=== PATIENT | female | born 1940 | race Caucasian/White ===

== ENCOUNTER 2024-10-26 07:30 | Inpatient (IN) | payer MEDICARE, SELFPAY ==
[2024-10-26] VITALS (9 sets, daily range): BP systolic 116–169; BP diastolic 59–75; PULSE 64–87; TEMP 36.4–36.9; O2SAT 93–99; BMI 24.6; BMI 24.7
--- OUTSIDE RECORDS SUMMARY | 2024-10-26 07:39 | XMS_ITS | Encounter Summary ---
Author Organization [facility] Sys tem Address [facility] [id number] [address] [place] [address] Care Team Providers Care Senior Procurement Specialist Name Role Phone Salazar Jacob TECHNICAL COMMUNICATOR-AUTOMOTIVE PRODUCT SPECIALIST Primary Care Provider + Reason for Visit * Reason Onset Date Comments Med Refill 10/23/2016 Encounter Details Date Type Department Care Team (Late st Contact Info) Description 10/23/2016 Refill [facility] [address] [place] [address] [place] [phone] Maria Dolores Akbar RMA Essential hypertension (Primary Dx) Social History Tobacco Use Types Packs/Day Years Used Date Smoking Tobacco: Never Alcohol Use Standard Drinks/Week Comments No 0 (1 standard drink = 0.6 oz pur e alcohol) Comments Unknown Sex and Gender Information Value Date Recorded Sex Assigned at Not on file Legal Sex Female 11:39 AM EDT Gender Identity Not on file Sexual Orientation Not on file documented as of this encounter Miscellaneous Notes * Telephone Encounter - RENY Robb - 10/23/2016 10:02 AM EDT Patient needs a refill on her omeprazole 20mg also RENY Robb 10/23/16 1003 documented in this encounter Plan of Treatment Not on file documented as of this encounter Visit Diagnoses Diagnosis Essential hypertension- Primary Unspecified essential hypertension documented in this encounter Additional Health Concerns Assessment Noted Time PHQ-9 Depression Total Score: 0 07/19/19 17 2:00 PM EDT documented as of this encounter Care Teams Senior Procurement Specialist Relationship Specialty Start Date End Date Salazar Jacob, TECHNICAL COMMUNICATOR-AUTOMOTIVE PRODUCT SPECIALIST [address] [place] [address] PCP - General Internal Medicine 10/13/24 10/19/24 documented as of this encounter
--- OUTSIDE RECORDS SUMMARY | 2024-10-26 07:39 | XMS_ITS | Encounter Summary ---
Author Organization [facility] Sys tem Address [id number] [address] [place] [address] Care Team Providers Care Dry Kiln Operator Name Role Phone Salazar Jacob PATIENT SERVICE TECHNICIAN PST-CAREERS ADVISER Primary Care Provider + Encounter Details Date Type Department Care Team (Late st Contact Info) Description 09/22/2024 Orders Only [facility] - Family Medicine [address] [place] [phone] Kash Tomas, [address] [place] [address] Social History Tobacco Use Types Packs/Day Years Used Date Smoking Tobacco: Never Smokeless Tobacco: Never Alcohol Use Standard Drinks/Week Comments No 0 (1 standard drink = 0.6 oz pur e alcohol) PHQ-2 Answer Date Recorded Total Score 0 08/05/2024 Childcare Answer Date Recorded Childcare Unknown 08/21/2018 Employment Answer Date Recorded Employment Unknown 08/21/2018 Hunger Screening Answer Date Recorded Within the past 12 months we worried whether our food would run out before we got money to buy more. Never True 08/05/2024 Within the past 12 months th e food we bought just didn't last and we didn't have money to get more. Never True 08/05/2024 Purpose - Life Answer Date Recorded Purpose and direction in life Unknown Comments No Sex and Gender Information Value Date Recorded Sex Assigned at Not on file Legal Sex Female 11:39 AM EDT Gender Identity Not on file Sexual Orientation Not on file documented as of this encounter Plan of Treatment Not on file documented as of this encounter Visit Diagnoses Not on filedocumented in this encounter Additional Health Concerns Assessment Noted Time PHQ-9 Depression Total Score: 0 08/06/19 1:38 PM EDT A Body Mass Index follow-up plan has been documented for the patient 08/05/2024 3:04 PM EDT documented as of this encounter Care Teams Dry Kiln Operator Relationship Specialty Start Date End Date Salazar Jacob, PATIENT SERVICE TECHNICIAN PST-CAREERS ADVISER [address] [place] [address] PCP - General Internal Medicine 10/13/24 10/19/24 documented as of this encounter
--- OUTSIDE RECORDS SUMMARY | 2024-10-26 07:39 | XMS_ITS | Encounter Summary ---
Author Organization [facility] Sys tem Address [facility] [place]-[id number] [address] 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; Arthritis, multiple joint involvement Social History Tobacco Use Types Packs/Day Years Used Date Smoking Tobacco: Never Smokeless Tobacco: Never Alcohol Use Standard Drinks/Week Comments No 0 (1 standard drink = 0.6 oz pur e alcohol) PHQ-2 Answer Date Recorded PHQ-2 Score 0 02/28/2018 Childcare Answer Date Recorded Childcare Unknown 08/21/2018 Employment Answer Date Recorded Employment Unknown 08/21/2018 Comments No Sex and Gender Information Value Date Recorded Sex Assigned at Not on file Legal Sex Female 11:39 AM EDT Gender Identity Not on file Sexual Orientation Not on file documented as of this encounter Miscellaneous Notes * Telephone Encounter - Demi Mcrae MA - 11/07/2018 1:29 PM EDT Pt called and would like [place] refilled, told will call her once it is ready for cotton picking machine operator-she has 3 pills left Demi Mcrae MA 11/07/18 1330 * Telephone Encounter - Demi Mcrae MA - 11/07/2018 1:29 PM EDT Pt called and informed to be picked up documented in this encounter Plan of Treatment Not on file documented as of this encounter Visit Diagnoses Diagnosis Chronic pain of right hip 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
--- OUTSIDE RECORDS SUMMARY | 2024-10-26 07:39 | XMS_ITS | Clinical Summary ---
Author Organization [facility] Address [address] [place] [address] Phone Care Team Providers Care Design Leader Name Role Phone Unavailable Primary Care Provider Unavailabl e Social History Tobacco Use Types Packs/Day Years Used Date Smoking Tobacco: Never Assessed Comments Unknown Sex and Gender Information Value Date Recorded Sex Assigned at Not on file Legal Sex Female 1:44 AM EST Gender Identity Not on file Sexual Orientation Not on file Plan of Treatment Not on file
--- OUTSIDE RECORDS SUMMARY | 2024-10-26 07:39 | XMS_ITS | Encounter Summary ---
Author Organization [facility] Address [id number] [address] [place] [address] Care Team Providers Care Ironing Worker Name Role Phone Salazar Jacob ESCALATOR INSTALLER-PULLMAN CAR REPAIRER Primary Care Provider + Reason for Visit * Reason Onset Date Comments Med Refill 02/20/2019 Encounter Details Date Type Department Care Team (Late st Contact Info) Description 02/20/2019 Refill [facility] [address] [place] [address] [address] Demi Mcrae MA Chronic pain of right hip; Arthritis, multiple joint involvement Social History Tobacco [...] Telephone Encounter - Demi Mcrae MA - 02/20/2019 12:32 PM EST Would like refill, informed it won't be until Sunday when I get back with an answer from Jeniffer since she if off on vacation today Demi Mcrae MA 02/20/19 1233 documented in this encounter Plan of Treatment Not on file documented as of this encounter Visit Diagnoses Diagnosis Chronic pain of right hip Arthritis, multiple joint involvement Unspecified arthropathy, multiple sites documented in this encounter Additional Health Concerns Assessment Noted Time PHQ-9 Depression Total Score: 0 12/31/19 19 1:57 PM EDT documented as of this encounter Care Teams Ironing Worker Relationship Specialty Start Date End Date Salazar Jacob, PRASHANTH-PULLMAN CAR REPAIRER [address] [place] [address] PCP - General Internal Medicine 10/13/24 10/19/24 documented as of this encounter
--- OUTSIDE RECORDS SUMMARY | 2024-10-26 07:39 | XMS_ITS | Encounter Summary ---
Author Organization [facility] Sys tem Address [facility] [id number] [address] [place] [address] Care Team Providers Care Retirement Village Manager Name Role Phone Salazar Jacob STORAGE MANAGEMENT ARCHITECT-TURNSTILE COLLECTOR Primary Care Provider + Reason for Visit * Reason Onset Date Comments Med Refill 05/24/2020 Encounter Details Date Type Department Care Team (Late st Contact Info) Description 05/24/2020 Refill [facility] [address] [facility] [place] [address] Demi Mcrae MA Chronic pain of right hip; Arthritis, multiple joint involvement; Right rotator cuff tear arthropathy Social History Tobacco Use Types Packs/Day Years Used Date Smoking Tobacco: Never Smokeless Tobacco: Never Alcohol Use Standard Drinks/Week Comments No 0 (1 standard drink = 0.6 oz pur e alcohol) PHQ-2 Answer Date Recorded PHQ-2 Score 0 02/28/2018 Childcare Answer Date Recorded Childcare Unknown 08/21/2018 Employment Answer Date Recorded Employment Unknown 08/21/2018 Purpose - Life Answer Date Recorded Purpose and direction in life Unknown Comments No Sex and Gender Information Value Date Recorded Sex Assigned at Not on file Legal Sex Female 11:39 AM EDT Gender Identity Not on file Sexual Orientation Not on file documented as of this encounter Miscellaneous Notes * Telephone Encounter - Demi Mcrae MA - 05/24/2020 2:31 PM EDT Pt called and has 4 pills left on norco, needs refill Demi Mcrae MA 05/24/20 1432 documented in this encounter Plan of Treatment Not on file documented as of this encounter Visit Diagnoses Diagnosis Chronic pain of right hip Arthritis, multiple joint involvement Unspecified arthropathy, multiple sites Right rotator cuff tear arthropathy documented in this encounter Additional Health Concerns Assessment Noted Time PHQ-9 Depression Total Score: 0 03/16/19 1:59 PM EST A Body Mass Index follow-up plan has been documented for the patient 03/16/2020 8:22 PM EST documented as of this encounter Care Teams Retirement Village Manager Relationship Specialty Start Date End Date Salazar Jacob, STORAGE MANAGEMENT ARCHITECT-TURNSTILE COLLECTOR [address] [place] [address] PCP - General Internal Medicine 10/13/24 10/19/24 documented as of this encounter
--- OUTSIDE RECORDS SUMMARY | 2024-10-26 07:39 | XMS_ITS | Encounter Summary ---
Author Organization [facility] Address [id number] [address] [place] [address] Care Team Providers Care Klystrom Tube Tester Name Role Phone Salazar Jacob STOCK PREPARER-HAND FILER BALANCE WHEEL Primary Care Provider + Reason for Visit * Reason Onset Date Comments Med Refill 09/11/2018 Encounter Details Date Type Department Care Team (Late st Contact Info) Description 09/11/2018 Refill [facility] [address] [address] [place] [address] Demi Mcrae MA Chronic pain of right [...] Telephone Encounter - Demi Mcrae MA - 09/11/2018 11:07 AM EDT Pt would like a refill on [place], would like to get before weekend Demi Mcrae MA 09/11/18 1108 * Telephone Encounter - Demi Mcrae MA - 09/11/2018 11:07 AM EDT PT INFORMED READY TO BIT SHARPENER OPERATOR documented in this encounter Plan of Treatment Not on file documented as of this encounter Visit Diagnoses Diagnosis Chronic pain of right hip 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
--- OUTSIDE RECORDS SUMMARY | 2024-10-26 07:39 | XMS_ITS | Encounter Summary ---
Author Organization [facility] tem Address [id number] [address] [place] [address] Care Team Providers Care Physician Relations Specialist Name Role Phone Salazar Jacob CUSTODY OFFICER-CPHT Primary Care Provider + Encounter Details Date Type Department Care Team (Late st Contact Info) Description 02/09/2020 Orders Only [facility] [address] [place] [address] [place] [address] Demi Mcrae MA Acute pain of right shoulder due to trauma Social History Tobacco Use Types Packs/Day Years [...] on file Sexual Orientation Not on file COVID-19 Exposure Response Date Recorded In the last month, have you been in contact with someone who was confirmed or suspected to have Coronavirus / COVID-19? No / Unsure 01/29/2020 9:23 AM EST documented as of this encounter Plan of Treatment Pending Results Name Type Priority Associated Diagnoses Date /Time CT shoulder right without contrast Imaging Routine Acute pain of right shoulder due to trauma 02/09/2020 12:42 PM EST documented as of this encounter Visit Diagnoses Diagnosis Acute pain of right shoulder due to trauma documented in this encounter Additional Health Concerns Assessment Noted Time PHQ-9 Depression Total Score: 0 01/29/20 9:46 AM EST A Body Mass Index follow-up plan has been documented for the patient 02/02/2020 7:37 AM EST documented as of this encounter Care Teams Physician Relations Specialist Relationship Specialty Start Date End Date Salazar Jacob, CUSTODY OFFICER-CPHT [address] [place] [address] PCP - General Internal Medicine 10/13/24 10/19/24 documented as of this encounter
--- OUTSIDE RECORDS SUMMARY | 2024-10-26 07:39 | XMS_ITS | Encounter Summary ---
Author Organization [facility] Sys tem Address [facility] [id number] [address] [place] [address] Care Team Providers Care Community Health Specialist Name Role Phone Salazar Jacob EVENT LIGHTING SPECIALIST-BOX STACKER Primary Care Provider + Encounter Details Date Type Department Care Team (Late st Contact Info) Description 04/19/2023 Orders Only [facility] - Family Medicine [address] [place] [phone] Sarthak Grace, DO [address] [facility] [place] [address] Social History Tobacco Use Types Packs/Day Years Used Date Smoking Tobacco: Never Smokeless Tobacco: Never Alcohol Use Standard Drinks/Week Comments No 0 (1 standard drink = 0.6 oz pur e alcohol) PHQ-2 Answer Date Recorded Total Score 0 01/30/2023 Childcare Answer Date Recorded Childcare Unknown 08/21/2018 Employment Answer Date Recorded Employment Unknown 08/21/2018 Hunger Screening Answer Date Recorded Within the past 12 months we worried whether our food would run out before we got money to buy more. Never True 01/30/2023 Within the past 12 months th e food we bought just didn't last and we didn't have money to get more. Never True 01/30/2023 Purpose - Life Answer Date Recorded Purpose [...] Noted Time PHQ-9 Depression Total Score: 0 01/31/20 23 10:58 AM EST A Body Mass Index follow-up plan has been documented for the patient 01/30/2023 11:42 AM EST documented as of this encounter Care Teams Community Health Specialist Relationship Specialty Start Date End Date Salazar Jacob, EVENT LIGHTING SPECIALIST-BOX STACKER [address] [place] [address] PCP - General Internal Medicine 10/13/24 10/19/24 documented as of this encounter
--- OUTSIDE RECORDS SUMMARY | 2024-10-26 07:39 | XMS_ITS | Encounter Summary ---
Author Organization [facility] tem Address [facility] [id number]-[id number] [address] [place] [address] Care Team Providers Care Etl Informatica Architect Name Role Phone Salazar Jacob FOAM RUBBER MIXER-CRIMINAL RECORDS TECHNICIAN Primary Care Provider + Encounter Details Date Type Department Care Team (Late st Contact Info) Description 06/27/2023 Telephone [facility] - [facility] Medicine [address] [place] [phone] Lurdes Walters CMA Social History Tobacco Use Types Packs/Day Years Used Date Smoking Tobacco: Never Smokeless Tobacco: Never Alcohol Use Standard Drinks/Week Comments No 0 (1 standard drink = 0.6 oz pur e alcohol) PHQ-2 Answer Date Recorded Total Score 0 05/01/2023 Childcare Answer Date Recorded Childcare Unknown 08/21/2018 Employment Answer Date Recorded Employment Unknown 08/21/2018 Hunger Screening Answer Date Recorded Within the past 12 months we worried whether our food would run out before we got money to buy more. Never True 05/01/2023 Within the past 12 months th e food we bought just didn't last and we didn't have money to get more. Never True 05/01/2023 Purpose - Life Answer Date Recorded Purpose and direction in life Unknown Comments No Sex and Gender Information Value Date Recorded Sex Assigned at Not on file Legal Sex Female 11:39 AM EDT Gender Identity Not on file Sexual Orientation Not on file documented as of this encounter Miscellaneous Notes * Telephone Encounter - Lurdes Walters CMA - 06/27/2023 11:52 AM EDT [facility] pt's RX you sent today , is it 30 day suppy with a quantity of 60 or make quantity last 30 days? * Telephone Encounter - SAMUEL Delgado - 06/27/2023 11:52 AM EDT I called and spoke with the pharmacist, the order is fine. * Telephone Encounter - Lurdes Walters CMA - 06/27/2023 11:52 AM EDT Ok thank you documented in this encounter Plan of Treatment Not on file documented as of this encounter Visit Diagnoses Not on filedocumented in this encounter Additional Health Concerns Assessment Noted Time PHQ-9 Depression Total Score: 0 05/01/19 24 1:07 PM EST A Body Mass Index follow-up plan has been documented for the patient 01/30/2023 11:42 AM EST documented as of this encounter Care Teams Etl Informatica Architect Relationship Specialty Start Date End Date Salazar Jacob APRN-CNP [address] [place] [address] PCP - General Internal Medicine 10/13/24 10/19/24 documented as of this encounter
--- OUTSIDE RECORDS SUMMARY | 2024-10-26 07:39 | XMS_ITS | Encounter Summary ---
Author Organization [facility] Sys tem Address [facility] [place]-[id number] [address] [place] [address] Care Team Providers Care Examination Scorer Name Role Phone Salazar Jacob LEGAL AID-RELOCATION COUNSELOR Primary Care Provider + Reason for Visit * Reason Onset Date Comments Med Refill 06/09/2024 Encounter Details Date Type Department Care Team (Late st Contact Info) Description 06/09/2024 Refill [facility] - Family Medicine [address] [place] [phone] Romeo, Lurdes, RN CIRCULATING Arthritis, multiple joint involvement; Chronic pain of right hip; Right rotator cuff tear arthropathy Social History Tobacco Use Types Packs/Day Years Used Date Smoking Tobacco: Never Smokeless Tobacco: Never Alcohol Use Standard Drinks/Week Comments No 0 (1 standard drink = 0.6 oz pur e alcohol) PHQ-2 Answer Date Recorded Total Score 0 05/06/2024 Childcare Answer Date Recorded Childcare Unknown 08/21/2018 Employment Answer Date Recorded Employment Unknown 08/21/2018 Hunger Screening Answer Date Recorded Within the past 12 months we worried whether our food would run out before we got money to buy more. Never True 05/06/2024 Within the past 12 months th e food we bought just didn't last and we didn't have money to get more. Never True 05/06/2024 Purpose - Life Answer Date Recorded Purpose and direction in life Unknown Comments No Sex and Gender Information Value Date Recorded Sex Assigned at Not on file Legal Sex Female 11:39 AM EDT Gender Identity Not on file Sexual Orientation Not on file documented as of this encounter Plan of Treatment Not on file documented as of this encounter Visit Diagnoses Diagnosis Arthritis, multiple joint involvement Unspecified arthropathy, multiple sites Chronic pain of right hip Right rotator cuff tear arthropathy documented in this encounter Additional Health Concerns Assessment Noted Time PHQ-9 Depression Total Score: 0 05/06/19 1:38 PM EST A Body Mass Index follow-up plan has been documented for the patient 05/06/2024 2:08 PM EST documented as of this encounter Care Teams Examination Scorer Relationship Specialty Start Date End Date Salazar Jacob, LEGAL AID-RELOCATION COUNSELOR [address] [place] [address] PCP - General Internal Medicine 10/13/24 10/19/24 documented as of this encounter
--- OUTSIDE RECORDS SUMMARY | 2024-10-26 07:39 | XMS_ITS | Encounter Summary ---
Author Organization [facility] tem Address [facility]-[id number] [address] [place] [address] Care Team Providers Care Beef Selector Name Role Phone Salazar Jacob SUPERVISOR AIRCRAFT MAINTENANCE-DIRECT RESPONSE CONSULTANT Primary Care Provider + Encounter Details Date Type Department Care Team (Late st Contact Info) Description 07/20/2021 [facility]phone [facility] [address] [place] [address] Deisy Calhoun CMA Social History Tobacco Use Types Packs/Day Years Used Date Smoking Tobacco: Never Smokeless Tobacco: Never Alcohol Use Standard Drinks/Week Comments No 0 (1 standard drink = 0.6 oz pur e alcohol) PHQ-2 Answer Date Recorded Total Score 0 04/26/2021 Childcare Answer Date Recorded Childcare Unknown 08/21/2018 [...] Exposure Response Date Recorded In the last 10 days, have yo u been in contact with someone who was confirmed or suspected to have Coronavirus/COVID-19? No / Unsure 07/19/2021 10:01 AM EDT documented as of this encounter Miscellaneous Notes * Telephone Encounter - Deisy Calhoun CMA - 07/20/2021 5:34 PM EDT Pt called and wanted to let you know she got in with Dr Brown on Sunday. She asks if we sent anything over to him, as she is concerned he will not understand what has been going on with her. Is there anything I should send over to office? Not sure as this is an outside referral how this will work. * Telephone Encounter - SAMUEL Delgado - 07/20/2021 5:34 PM EDT Nothing to send at this time. I did not order xrays unless her pain is unchanged. If he needs to speak with me, I always do- as long as the patient consents, and she has. documented in this encounter Plan of Treatment Not on file documented as of this encounter Visit Diagnoses Not on filedocumented in this encounter Additional Health Concerns Assessment Noted Time PHQ-9 Depression Total Score: 0 04/26/19 22 1:49 PM EST A Body Mass Index follow-up plan has been documented for the patient 01/11/2021 12:37 PM EDT documented as of this encounter Care Teams Beef Selector Relationship Specialty Start Date End Date Salazar Jacob APRN-CNP [address] [place] [address] PCP - General Internal Medicine 10/13/24 10/19/24 documented as of this encounter
--- OUTSIDE RECORDS SUMMARY | 2024-10-26 07:39 | XMS_ITS | Clinical Summary ---
Author Organization [facility] Healthcare Address [address] [place] [address] Care Team Providers Care Broodmare Barn Groom Name Role Phone Yaa Peña Unavailable [phone] Allergies Active Allergy Reactions Criticality Noted Date Comments Codeine Diarrhea,Nausea Only ,Unknown,GI intolerance 06/05/2016 Medications amLODIPine (Norvasc) 10 MG tablet Take 10 mg by mouth in the morning. 06/06/2022 Active aspirin 325 MG tablet every 12 (twelve) hours Active HYDROcodone-laxmi taminophen (Ashley) 5-325 MG tablet Take 1 tablet by mouth every 12 (twelve) hours if needed 06/08/2022 Active lisinopril 20 MG tablet Take 20 mg by mouth in the morning. 06/06/2022 Active omeprazole (PriLOSEC) [address] capsule Active prednisoLONE acetate (Pred-Forte) 1 % ophthalmic suspensionIndic ations:Post corneal transplant INSTILL 1 DROP IN THE AFFECTED EYE(S) FOUR TIMES DAILY 15 mL 5 06/12/2024 Active cycloSPORINE (Restasis) 0.05 % ophthalmic emulsion INSTILL 1 DROP INTO EACH EYE EVERY MORNING AND BEFORE BEDTIME 08/05/2024 Active Active Problems Problem Noted Date Diagnosed Date Post corneal transplant 09/19/2022 Keratoconjunctivitis sicca o f both eyes not specified as Sjogren's 09/19/2022 Blepharitis of upper and lower eyelids of both e yes 09/19/2022 Encounters Date Type Department Care Team Description 09/02/2024 2:45 PM EDT Office Visit [facility] [address] [place] [address] Kedar Kemp PA Primary osteoarthritis of right knee (Primary Dx) 09/02/2024 11:30 AM EDT Ancillary Procedure [facility] [address] [place] [id number] 09/02/2024 Travel from Last 3 Months Social History Tobacco Use Types Packs/Day Years Used Date Smoking Tobacco: Never Smokeless Tobacco: Never Tobacco Cessation:Counseling Given: Not Answered Comments Unknown Sex and Gender Information Value Date Recorded Sex Assigned at Not on file Legal Sex Female 8:33 PM EDT Gender Identity Not on file Sexual Orientation Not on file Last Filed Vital Signs Vital Sign Reading Time Taken Comments Blood Pressure 147/70 04/18/2019 12:00 PM EST Pulse - - Temperature 36.3 C (97.4 F) 02/20/2024 12:56 PM EST Respiratory Rate - - Oxygen Saturation - - Inhaled Oxygen Concentration - - Weight 64.9 kg (143 lb) 09/02/2024 2:38 PM EDT Height 157.5 cm (5' 2 ) 09/02/2024 2:38 PM EDT Body Mass Index 26.16 09/02/2024 2:38 PM EDT Plan of Treatment Upcoming Encounters Date Type Department Care Team (Late st Contact Info) Description 10/27/2024 1:00 PM EDT Office Visit [facility] [address] [place] [address] Eloy Sosa DO [address] [place] [address] Health Maintenance Due Date Last Done Comments Pneumococcal Vaccine: 65+ Years (1 of 1 - PCV) 990 Influenza Vaccine (#1) 2024 Procedures Procedure Name Priority Date/Time Associated Diagnosis Comments [place] ARTHROCENTESIS ASPIR&/INJ MAJOR JT/BURSA W/O US Routine 09/02/2024 2:54 PM EDT Primary osteoarthritis of right knee XR KNEE 3 VIEWS RIGHT Routine 09/02/2024 11:25 AM EDT Primary osteoarthritis of right knee from Last 3 Months Results * [place] ARTHROCENTESIS ASPIR&/INJ MAJOR JT/BURSA W/O US (09/02/2024 2:54 PM EDT) Narrative Terencenicolealycia DeviCHANNING - 09/02/2024 2:54 PM EDT Devi CHANNING Hong 09/18/2024 4:25 PM L Inj/Asp: R knee on 09/02/2024 2:54 PM Indications: pain Details: 25 G needle, anterolateral approach Medications: 12 mg betamethasone acetate-betamethasone sodium phosphate 6 (3-3) MG/ML Procedure, treatment alternatives, risks and benefits explained, specific risks discussed. Consent was given by the patient. Immediately prior to procedure a time out was called to verify the correct patient, procedure, equipment, family support coordinator and site/side marked as required. Patient was prepped and draped in the usual sterile fashion. us Kedar BROOKS IN CLINIC/BEDSIDE ORDERABLES Fin al Result * XR knee 3 views right (09/02/2024 11:25 AM EDT) Anatomical Region Laterality Modality Lower Extremities, Knee Right Radiogra [facility] Imaging Narrative 09/18/2024 4:22 PM EDT Imaging Result: Bilateral standing PA, bilateral sunrise, and lateral of the affected knee were imaged today in the office. Patient does have noted right greater than left chondrocalcinosis of the men[place]i and slightly advanced patellofemoral disease on the right but no evidence of acute fracture bony tumor seen us Kedar BROOKS IMG XR PROCEDURES Final Result from Last 3 Months Insurance [facility] MEDICARE Care Teams Broodmare Barn Groom Relationship Specialty Start Date End Date Yaa Peña CRNP Referring Physician Nurse Practitioner 09/18/23
--- OUTSIDE RECORDS SUMMARY | 2024-10-26 07:39 | XMS_ITS | Encounter Summary ---
Author Organization [employer] [facility] Address [id number] [address] 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 Social History Tobacco Use Types Packs/Day Years Used Date Smoking Tobacco: Never Smokeless Tobacco: Never Alcohol Use Standard Drinks/Week Comments No 0 (1 standard drink = 0.6 oz pur e alcohol) PHQ-2 Answer Date Recorded PHQ-2 Score 0 02/28/2018 Comments No Sex and Gender Information Value Date Recorded Sex Assigned at Not on file Legal Sex Female 11:39 AM EDT Gender Identity Not on file Sexual Orientation Not on file documented as of this encounter Miscellaneous Notes * Telephone Encounter - Demi Mcrae MA - 05/20/2018 12:03 PM EDT Would like a refill on pain medication, told will call so she can pick it up Demi Mcrae MA 05/20/18 1203 * Telephone Encounter - Demi Mcrae MA - 05/20/2018 12:03 PM EDT Called pt to let her know rx ready to sweet pickled fruit maker documented in this encounter Plan of Treatment Not on file documented as of this encounter Visit Diagnoses Diagnosis Chronic pain of right hip 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
--- OUTSIDE RECORDS SUMMARY | 2024-10-26 07:39 | XMS_ITS | Clinical Summary ---
Author Organization [employer] tem Address [id number] [address] [place] [address] Care Team Providers Care Tack Puller Name Role Phone Unavailable Primary Care Provider Unavailabl e Allergies Active Allergy Reactions Criticality Noted Date Comments Codeine Diarrhea,Nausea,Vomiting 06/05/2016 Medications aspirin-caffeine 400-32 mg tablet Take by mouth as needed. Active LOTEMAX 0.5 % ophthalmic gel Administer 1 drop to both eyes in the morning and 1 drop before bedtime. 5 9 Active aspirin 81 mgIndications:Ath erosclerosis of cous[place] coronary artery of [place] heart without angina pectoris Take 1 tablet (81 mg total) by mouth daily. 150 tablet 2 1 Active ofloxacin (OCUFLOX) 0.3 % ophthalmic solution 2 Active cycloSPORINE (RESTASIS) 0.05 % ophthalmic emulsion 1 drop in the morning and 1 drop before bedtime. Active melatonin (CIRCADIN) tablet Take 1 tablet (1 mg total) by mouth. 2 Active prednisoLONE acetate (PRED FORTE) 1 % ophthalmic suspension 3 Active loperamide (IMODIUM) 2 mg capsuleIndication s:Loose stools Take 1 capsule (2 mg total) by mouth 4 (four) times a day as needed for diarrhea. 30 capsule 6 3 Active amLODIPine (NORVASC) 10 mg tabletIndications :Essential hypertension Take 1 tablet (10 mg total) by mouth in the morning. 90 tablet 1 5 Active lisinopriL (PRINIVIL,ZESTRIL ) 20 mg tabletIndications :Essential hypertension Take 1 tablet (20 mg total) by mouth in the morning. 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 90 capsule 1 5 Active HYDROcodone-aceta minophen (NORCO) 5-325 mg per tabletIndications :Arthritis, multiple joint involvement,Chron ic pain of right hip,Right rotator cuff tear arthropathy Take 1 tablet by mouth every 12 (twelve) hours as needed for pain. Max Daily Amount: 2 tablets 40 tablet 5 Active Active Problems Problem Noted Date Diagnosed Date Elevated glucose level 12/09/2019 Narcotic drug use 09/16/2019 Abnormal mammogram of right breast 10/03/2018 Stage 3 chronic kidney disease 09/30/2018 Arthritis, multiple joint involvement 07/14/2018 Encounter for screening mamm ogram for malignant neoplasm of breast 06/26/2017 Chronic pain of right hip 06/11/2017 Screening for diabetes mellitus (DM) 02/20/2017 Post-menopausal 02/20/2017 Hyperlipemia 07/18/2016 Atherosclerosis of [place] co ronary artery of [place] heart without angina pectoris 07/18/2016 Myocardial infarct, old 07/18/2016 Allergic rhinitis due to pollen 07/18/2016 Essential hypertension 07/18/2016 Resolved Problems Problem Noted Date Diagnosed Date Resolved Date Gastroenteritis 03/26/2018 12/09/2019 Chronic iliotibial band synd yordan of right side 11/05/2017 12/10/2019 Reflux esophagitis 1 Encounters Date Type Department Care Team Description 09/22/2024 Orders Only [facility] [address] [place] [address] Kash Tomas DO 09/22/2024 Refill [facility] [address] [place] [address] Ksenia Calderon CMA Arthritis, multiple joint involvement; Chronic pain of right hip; Right rotator cuff tear arthropathy 08/05/2024 1:40 PM EDT Office Visit [facility] [address] [place] [address] Yaa Peña, CREATIVE CONSULTANT-GUIDANCE AND CONTROL SYSTEM ENGINEER Chronic pain of right hip (Primary Dx); Arthritis, multiple joint involvement; Right rotator cuff tear arthropathy; Narcotic use agreement exists 08/05/2024 Travel from Last 3 Months Family History Medical History Relation Name Comments Diabetes Father Coronary artery disease Other Hyperlipidemia Other Hypertension Other Stroke Other Breast cancer Paternal Grandmother 80s [place] Breast Cancer Neg Hx Relation Name Status Comments Father Mother Other Paternal Grandmother Social History Tobacco Use Types Packs/Day Years Used Date Smoking Tobacco: Never Smokeless Tobacco: Never Tobacco Cessation:Counseling Given: Not Answered Alcohol Use Standard Drinks/Week Comments No 0 [...] Sign Reading Time Taken Comments Blood Pressure 110/58 08/05/2024 1:38 PM EDT Pulse 64 08/05/2024 1:38 PM EDT Temperature 37.1 C (98.8 F) 08/05/2024 1:38 PM EDT Respiratory Rate 20 08/05/2024 1:38 PM EDT Oxygen Saturation 98% 08/05/2024 1:38 PM EDT Inhaled Oxygen Concentration - - Weight 64.9 kg (143 lb) 08/05/2024 1:38 PM EDT Height 159.7 cm (5' 2.87 ) 08/05/2024 1:38 PM ED T Body Mass Index 25.43 08/05/2024 1:38 PM EDT Plan of Treatment Health Maintenance Due Date Last Done Comments DTaP,Tdap and Td Vaccines (1 - Tdap) 01[birth year]03/1959 Zoster (Shingles) Vaccine (1 of 2) 01/03/1990 COVID-19 Vaccine (8 - 2023-2 5 season) 2024 01/25/2024, 12/15/2022, 12/09/2021, Additional history exists Influenza Vaccine 11/10/2024 Medicare Annual Wellness Visit 02/04/2025 1 04/06/2023, 01/30/2023, 01/17/2022, Additional history exists Depression Screening 08/05/2025 08/05/2024 Fall Risk Screening 08/05/2025 08/05/2024 Tobacco Screening 08/05/2025 08/05/2024 Medical Devices Not on file Procedures Procedure Name Priority Date/Time Associated Diagnosis Comments DRUG SCREEN, URINE Routine 08/05/2024 1: 58 PM EDT Narcotic use agreement exists from Last 3 Months Results * (ABNORMAL) Drug Screen, Urine (08/05/2024 1:58 PM EDT) AMPHETAMINE/METHAM P Negative Negative 08/05/2024 8:58 PM EDT [facility] Comment:AMPH/METH screening cut off = 1000 ng/mL COCAINE METABOLITE Negative Negative 2024 8:58 PM EDT [facility] Comment:Cocaine screening cu t off value = 300 ng/mL ECSTASY Negative Negative 08/05/2024 8:58 PM EDT [facility] Comment:Ecstasy screening cu t off value = 500 ng/mL METHADONE Negative Negative 08/05/2024 8:58 PM EDT [facility] Comment:Methadone screening cut off value = 300 ng/mL. OPIATES Positive(A) Negative 08/05/2024 8:58 PM EDT [facility] Comment: Opiates screening cut off value = 300 ng/mL This test is used for the detection of codeine, hydrocodone (>1000 ng/mL), morphine and hydromorphone (>900 ng/mL) in urine. OXYCODONE Negative Negative 08/05/2024 8:58 PM EDT [facility] Comment: M--DFLAG Oxycodone screening cut off value = 300 ng/mL This test is used for the detection of oxycodone and oxymorphone in urine. PHENCYCLIDINE Negative Negative 08/05/2024 8:58 PM EDT [facility] Comment:Phencyclidine screen ing cut off value = 25 ng/mL CANNABINOIDS Negative Negative 08/05/2024 8:58 PM EDT [facility] Comment:Cannabinoids/THC scr eening cut off value = 50 ng/mL Urine Barbiturates Negative Negative 2024 8:58 PM EDT [facility] Comment:Barbiturates screeni ng cut off value = 200 ng/mL BENZODIAZEPINES Negative Negative 8:58 PM EDT [facility] Comment:Benzodiazepines scre ening cut off value = 200 ng/mL Urine 08/05/2024 1:58 PM EDT 08/05/2024 1:59 PM EDT Narrative [facility] - 08/05/2024 8:58 PM EDT Confirmation available upon request. us Yaa Peña CREATIVE CONSULTANT-GUIDANCE AND CONTROL SYSTEM ENGINEER URINE ORDERABLES Fin al Result [facility] [address] [place] [address], from Last 3 Months Insurance [employer] MEDICARE
--- OUTSIDE RECORDS SUMMARY | 2024-10-26 07:39 | XMS_ITS | Encounter Summary ---
Author Organization [facility] Sys tem Address [id number] [address] [place] [address] Care Team Providers Care Insect Control Aide Name Role Phone Salazar Jacob SUPERVISOR CORDUROY CUTTING-SUPERVISOR CELL ROOM Primary Care Provider + Encounter Details Date Type Department Care Team (Late st Contact Info) Description 08/16/2021 Orders Only [facility] [address] [place] [address] Ref Prov, [place] [address] Social History Tobacco Use Types Packs/Day Years [...] AM EDT documented as of this encounter Plan of Treatment Not on file documented as of this encounter Procedures Procedure Name Priority Date/Time Associated Diagnosis Comments MULTIPLE LABS Routine 08/15/2021 XR CHEST 2 VWS Routine 08/15/2021 documented in this encounter Results * Multiple labs (08/15/2021) us Not In System Ref Prov OR IMAGING Final Res ult MANUALLY TRANSCRIBED RESULTS * X-ray chest 2 views (08/15/2021) Anatomical Region Laterality Modality Body, Chest N/A Computed Radiogr aphy us Not In System Ref Prov IMG DIAGNOSTIC IMAGING OR DERABLES Final Result documented in this encounter Visit Diagnoses Not on filedocumented in this encounter Additional Health Concerns Assessment Noted Time PHQ-9 Depression Total Score: 0 04/26/19 22 1:49 PM EST A Body Mass Index follow-up plan has been documented for the patient 01/11/2021 12:37 PM EDT documented as of this encounter Care Teams Insect Control Aide Relationship Specialty Start Date End Date Salazar Jacob, SUPERVISOR CORDUROY CUTTING-SUPERVISOR CELL ROOM [address] [place] [address] PCP - General Internal Medicine 10/13/24 10/19/24 documented as of this encounter
--- OUTSIDE RECORDS SUMMARY | 2024-10-26 07:39 | XMS_ITS | Encounter Summary ---
Author Organization [facility] Address [id number] [address] [place] [address] Care Team Providers Care Account Services Representative Name Role Phone Salazar Jacob CHIEF SECURITY AND SAFETY OFFICER-PROSTHETIC ASSISTANT Primary Care Provider + Reason for Visit * Reason Onset Date Comments Med Refill 09/14/2022 Encounter Details Date Type Department Care Team (Late st Contact Info) Description 09/14/2022 Refill [facility] [address] [place] [address] Yaa Peña, CHIEF SECURITY AND SAFETY OFFICER-[facility] [address] LEFT PM 09/08/24 [place] [id number] Social History Tobacco Use Types Packs/Day Years Used Date Smoking Tobacco: Never Smokeless Tobacco: Never Alcohol Use Standard Drinks/Week Comments No 0 (1 standard drink = 0.6 oz pur e alcohol) PHQ-2 Answer Date Recorded Total Score 0 01/17/2022 Childcare Answer Date Recorded Childcare Unknown 08/21/2018 [...] Noted Time PHQ-9 Depression Total Score: 0 01/18/20 22 1:20 PM EST A Body Mass Index follow-up plan has been documented for the patient 06/08/2022 1:04 PM EDT documented as of this encounter Care Teams Account Services Representative Relationship Specialty Start Date End Date Salazar Jacob, CHIEF SECURITY AND SAFETY OFFICER-PROSTHETIC ASSISTANT [address] [place] [address] PCP - General Internal Medicine 10/13/24 10/19/24 documented as of this encounter
--- OUTSIDE RECORDS SUMMARY | 2024-10-26 07:39 | XMS_ITS | Encounter Summary ---
Author Organization [facility] Address [id number] [address] [place] [address] Care Team Providers Care Pigment And Lacquer Mixer Name Role Phone Salazar Jacob SLATE TRIMMER-SURGERY AID Primary Care Provider + Encounter Details Date Type Department Care Team (Late st Contact Info) Description 08/17/2020 Refill [facility] [address] [facility] [place] [address] [place] [address] Deisy Calhoun CMA Chronic pain of right hip; Arthritis, multiple joint involvement; Right rotator cuff tear arthropathy Social History Tobacco Use Types Packs/Day Years Used Date Smoking Tobacco: Never Smokeless Tobacco: Never Alcohol Use Standard Drinks/Week Comments No 0 (1 standard drink = 0.6 oz pur e alcohol) PHQ-2 Answer Date Recorded Total Score 0 06/15/2020 Childcare Answer Date Recorded Childcare Unknown 08/21/2018 [...] Telephone Encounter - Deisy Calhoun CMA - 08/17/2020 1:47 PM EDT Pt has about 5 pills left, asked if you can send her in new script to [facility], thank you. * Telephone Encounter - SAMUEL Delgado - 08/17/2020 1:47 PM EDT The OARRS/MAPPS database was reviewed today and found to be appropriate. No indication of medication diversion, or non compliance. ?? Last fill Heath 5/325 tablets #30 was on 05/25/20 ?? Diagnosis:?? 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 Chronic right hip pain. Right rotator tear ?? Reviewed urine drug screen, negative.?? documented in this encounter Plan of Treatment Not on file documented as of this encounter Visit Diagnoses Diagnosis Chronic pain of right hip Arthritis, multiple joint involvement Unspecified arthropathy, multiple sites Right rotator cuff tear arthropathy documented in this encounter Additional Health Concerns Assessment Noted Time PHQ-9 Depression Total Score: 0 06/16/19 1:03 PM EDT A Body Mass Index follow-up plan has been documented for the patient 06/16/2020 6:51 AM EDT documented as of this encounter Care Teams Pigment And Lacquer Mixer Relationship Specialty Start Date End Date Salazar Jacob APRN-CNP [address] [place] [address] PCP - General Internal Medicine 10/13/24 10/19/24 documented as of this encounter
--- NOTE | 2024-10-26 07:51 | CT_ITS ---
The [address] [address] Patient Name: BRIDGET OWENS MRN: [id number] date: 1940 Sex: F Assigned Patient Location: ER Current Patient Location: ER Accession/Order Number: [id number] Exam Date: 10/26/2024 09:24 Report Date: 10/26/2024 09:28 At the request of: DAVIN SONG MD Procedure: CT abdomen pelvis w con CT ABDOMEN AND PELVIS WITH INTRAVENOUS CONTRAST: CLINICAL HISTORY: Rectal bleeding COMPARISON: None TECHNIQUE: Spiral images were obtained through the abdomen and pelvis following the administration of intravenous contrast. This CT exam was performed using one or more following dose reduction techniques: Automated exposure control, adjustment of the mA and/or kV according to patient size, or use of iterative reconstruction technique. FINDINGS: Lung Bases: [Bibasilar scarring.] Organs:Portions of the dome of the liver were excluded from today's study. Visualized liver appears unremarkable. Gallbladder portal vein spleen pancreas and adrenal glands all appear unremarkable. Cystic changes involving the kidneys, which are too small for true characterization. Aorta appears normal in caliber.[ GI: Stomach is nondistended. Small bowel appears nondilated. No abnormal wall thickening and inflammatory changes are seen involving the descending colon suggestive of colitis without obstruction.[ Pelvis:[Suboptimal evaluation due to streak hardware artifact from the patient's right hip prosthesis. There appears to be bilateral adnexal cysts, largest involving the right adnexa measuring 7.7 cm] Peritoneum/Retroperitoneum:No free air or free fluid or lymphadenopathy.[ Abd wall/Bones:Abdominal wall demonstrates no acute findings. Osseous structures demonstrate degenerative change. Scoliosis.[ CT/CT abdomen pelvis w con IMPRESSION: 1. Evidence of colitis involving the descending colon without obstruction. 2. Bilateral adnexal cysts largest measuring 7.7 cm. Further evaluation with nonemergent ultrasound is suggested. Impression dictated by: Parker Leija Jr., D.O. 10/26/2024 9:28 AM Dictation Location: [facility] Electronically authenticated by: [id number] Y Date: 10/26/2024 09:28
--- NOTE | 2024-10-26 07:52 | ED.GENADUL1 ---
HPI HPI - General Adult General Chief complaint: GI Bleed Stated complaint: RECTAL BLEEDING Time Seen by Provider: 10/26/24 07:35 Source: patient Mode of arrival: walk-in History of Present Illness HPI narrative: 84-year-old female presented to the emergency department for chief complaint of rectal bleeding. It began yesterday after eating a meal at a restaurant. She has had several bowel movements with bright red blood. She has some minimal abdominal discomfort but no significant pain. She has not had a colonoscopy in about 30 years. No fever or back pain. This has never happened to her before and she does not take any blood thinners. Related Data Home Medications ?Medication ?Instructions ?Recorded ?Confirmed amlodipine 10 mg tablet 10 mg PO DAILY 10/26/24 10/26/24 hydrocodone 5 mg-acetaminophen 325 1 tab PO Q12H PRN pain 10/26/24 10/26/24 mg tablet lisinopril 20 mg tablet 20 mg PO DAILY 10/26/24 10/26/24 omeprazole 20 mg capsule,delayed 20 mg PO DAILY 10/26/24 10/26/24 release Allergies Allergy/AdvReac Type Severity Reaction Status Date / Time codeine AdvReac Severe Vomiting Verified 10/26/24 07:43 Review of Systems ROS Narrative A ten point review of systems is negative except as noted above. PFSH PFSH Social History Little interest or pleasure in doing things: not at all Feeling down, depressed, or hopeless: not at all Exam Narrative Exam Narrative: Nurses note and vital signs reviewed and patient is not hypoxic. General: The patient appears well and in no apparent distress. Patient is resting comfortably on cart. Skin: Warm, dry, no pallor noted. There is no rash noted. Head: Normocephalic, atraumatic Eye: Normal conjunctiva, no drainage Ears, Nose, Mouth, and Throat: oral mucosa is moist. Nares patent. Cardiovascular: Regular Rate and Rhythm Respiratory: Patient is in no distress, no accessory muscle use, lungs are clear to auscultation, no wheezing, rales or rhonchi Back: non-tender GI: Soft and no apparent tenderness on palpation. No masses. Digital rectal exam shows small amount of bright red blood. Musculoskeletal: The patient has no evidence of calf tenderness, no pitting edema, symmetrical pulses noted bilaterally Neurological: A&O, normal speech Psychiatric: Cooperative Constitutional Vital Signs, click to edit/add: Last Vital Signs Temp 98 F 10/26/24 07:37 Pulse 87 10/26/24 07:37 Resp 18 10/26/24 07:37 BP 143/59 H 10/26/24 08:00 Pulse Ox 99 10/26/24 08:20 O2 Del Method Room Air 10/26/24 07:37 Course Vital Signs Vital signs: Vital Signs Temperature 98 F 10/26/24 07:37 Pulse Rate 87 10/26/24 07:37 Respiratory Rate 18 10/26/24 07:37 Blood Pressure 151/69 H 10/26/24 07:37 Pulse Oximetry 98 10/26/24 07:37 Oxygen Delivery Method Room Air 10/26/24 07:37 Temperature 98 F 10/26/24 07:37 Pulse Rate 87 10/26/24 07:37 Respiratory Rate 18 10/26/24 07:37 Blood Pressure 143/59 H 10/26/24 08:00 Pulse Oximetry 99 10/26/24 08:20 Oxygen Delivery Method Room Air 10/26/24 07:37 Medical Decision Making MDM Narrative Medical decision making narrative: Colitis is identified on CAT scan and she has a normal lactic acid level. She was given IV Cipro and Flagyl. I have spoken to Dr. Meadows and the patient will be admitted here for monitoring of her blood count and IV antibiotics. Treatment diagnosis and disposition were discussed with the patient and her family. Differential Diagnosis Differential Diagnosis: Ischemic colitis, infectious colitis, diverticulitis Lab Data Lab results reviewed: Yes I reviewed the patient's lab results Labs: Lab Results 10/26/24 10/26/24 Range/Units 07:50 09:54 WBC 7.9 6.5 (4.0-11.0) 10^3/uL RBC 4.68 4.36 (4.20-5.40) 10^6/uL Hgb 14.2 13.6 (12.0-16.0) g/dL Hct 42.8 40.0 (36.0-48.0) % MCV 91.5 91.7 (81.0-99.0) fL MCH 30.3 31.2 (26.7-34.0) pg MCHC 33.2 34.0 (29.9-35.2) g/dL RDW 12.6 12.6 (11.0-15.0) % Plt Count 189 164 (150-450) 10^3/uL MPV 12.5 12.6 (9.5-13.5) fL Neut % (Auto) 58.0 77.6 H (43.0-75.0) % Lymph % (Auto) 33.0 15.9 L (20.5-60.0) % [place] % (Auto) 6.9 5.5 (1.7-12.0) % Eos % (Auto) 1.4 0.5 L (0.9-7.0) % Baso % (Auto) 0.3 0.2 (0.2-2.0) % Neut # (Auto) 4.6 5.1 (1.4-6.5) 10^3/uL Lymph # (Auto) 2.6 1.0 L (1.2-3.8) 10^3/uL [place] # (Auto) 0.5 0.4 (0.3-0.8) 10^3/uL Eos # (Auto) 0.1 0.0 (0.0-0.7) 10^3/uL Baso # (Auto) 0.0 0.0 (0.0-0.1) 10^3/uL Abs Immat Gran (auto) 0.03 0.02 (0.00-0.03) 10^3/uL Imm/Tot Granulo (auto) 0.4 0.3 (0.0-0.5) % Sodium 141 (136-145) mmol/L Potassium 3.9 (3.5-5.1) mmol/L Chloride 105 (98-107) mmol/L Carbon Dioxide 22.3 (21.0-32.0) mmol/L Anion Gap 17.6 BUN 16.0 (7.0-18.0) mg/dL Creatinine 1.18 H (0.55-1.02) mg/dL Est GFR ( Amer) 53 L (>=60 mL/min/1.73m^2) Est GFR (Non-Af Amer) 44 L (>=60 mL/min/1.73m^2) BUN/Creatinine Ratio 13.6 Glucose 132 H (74-106) mg/dL Lactate 1.4 (0.4-2.0) mmol/L Calcium 9.2 (8.5-10.1) mg/dL Stool Occult Blood Positive A Imaging Data CT scan - abdomen: Radiologist's impression: ITS Impressions Abdomen/Pelvis CT 10/26/24 07:51 IMPRESSION: 1. Evidence of colitis involving the descending colon without obstruction. 2. Bilateral adnexal cysts largest measuring 7.7 cm. Further evaluation with nonemergent ultrasound is suggested. Impression dictated by: Parker Leija Jr., D.O. 10/26/2024 9:28 AM Dictation Location: [facility] Electronically authenticated by: [id number] Y Date: 10/26/2024 09:28 Discharge Plan Discharge Chief Complaint: GI Bleed Clinical Impression: Colitis Patient Disposition: Admitted As Inpatient Time of Disposition Decision: 10:46 Condition: Fair
[2024-10-26 08:00] LABS: Hematocrit 42.8 % (36.0-48.0); Hemoglobin 14.2 g/dL (12.0-16.0); Immature Granulocytes Abs Auto 0.03 10^3/uL (0.00-0.03); Immature Granulocytes Pct Auto 0.4 % (0.0-0.5); Lymphocytes Absolute Auto 2.6 10^3/uL (1.2-3.8); Mean Corpuscular HGB Conc 33.2 g/dL (29.9-35.2); Mean Corpuscular Hemoglobin 30.3 pg (26.7-34.0); Mean Corpuscular Volume 91.5 fL (81.0-99.0); Platelet Count 189 10^3/uL (150-450); Red Blood Count 4.68 10^6/uL (4.20-5.40); White Blood Count 7.9 10^3/uL (4.0-11.0)
[2024-10-26 08:09] LABS: Anion Gap 17.6; Blood Urea Nitrogen 16.0 mg/dL (7.0-18.0); Calcium 9.2 mg/dL (8.5-10.1); Carbon Dioxide 22.3 mmol/L (21.0-32.0); Chloride 105 mmol/L (98-107); Estimated GFR (African America 53 (>=60 mL/min/1.73m^2); Estimated GFR (Non-African Ame 44 (>=60 mL/min/1.73m^2); Glucose 132 mg/dL (74-106); Potassium 3.9 mmol/L (3.5-5.1); Sodium 141 mmol/L (136-145)
[2024-10-26 09:59] LABS: Hematocrit 40.0 % (36.0-48.0); Hemoglobin 13.6 g/dL (12.0-16.0); Immature Granulocytes Abs Auto 0.02 10^3/uL (0.00-0.03); Immature Granulocytes Pct Auto 0.3 % (0.0-0.5); Lymphocytes Absolute Auto 1.0 10^3/uL (1.2-3.8); Mean Corpuscular HGB Conc 34.0 g/dL (29.9-35.2); Mean Corpuscular Hemoglobin 31.2 pg (26.7-34.0); Mean Corpuscular Volume 91.7 fL (81.0-99.0); Platelet Count 164 10^3/uL (150-450); Red Blood Count 4.36 10^6/uL (4.20-5.40); White Blood Count 6.5 10^3/uL (4.0-11.0)
[2024-10-26 10:12] LABS: Lactate/Lactic Acid 1.4 mmol/L (0.4-2.0)
[2024-10-26] MEDS: METRONIDAZOLE/SODIUM CHLORIDE 500 MG/100 ML PREMIX 100 MG IV (11:00)
[2024-10-26] MEDS: CIPROFLOXACIN IN 5 % DEXTROSE 400 MG/200 ML PREMIX 200 MG IV (12:01)
--- NOTE | 2024-10-26 12:02 | ECG_ITS ---
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 Measurements Intervals [place] Rate: 72 P: 62 [place]: 178 QRS: -35 QRSD: 96 T: 83 QT: 382 QTc: 418 Interpretive Statements SINUS RHYTHM MARKED LEFT AXIS DEVIATION [QRS AXIS < -30] NONSPECIFIC T-WAVE ABNORMALITY Abnormal ECG No previous ECG available for comparison Electronically Signed On 10-27-2024 17:43:03 EDT by HANNAH MAYEN M.D.
--- NOTE | 2024-10-26 13:20 | PM.HP ---
HPI H&P: HPI History of Present Illness Chief complaint: RECTAL BLEEDING, COLITIS Narrative: Mrs. Sweet is an 84-year-old female who came to the emergency room complaining of abdominal cramps and bloody stool. This started Sunday afternoon. Nausea but no vomiting. No hematemesis. Patient had previous similar episode about 20 years ago. No fever or chills No recent travel. No unusual food intake. No recent antibiotic intake. Opioid HPI Opioid Management Most Recent Pain and Opioid Data: Last Pain Assessment Today, 12:11 Last ORT Total Score 0 Today, 11:32 Last ORT Risk Category Low Risk Today, 11:32 Review of Systems ROS Status of ROS 10 or more systems reviewed and unremarkable except as noted in history and below PFSH [facility] Medical History (Updated 10/26/24 @ 13:21 by Destin Meadows MD) Arthritis ?M19.90 - Unspecified osteoarthritis, unspecified site (ICD-10) History of colitis ?Z87.19 - Personal history of other diseases of the digestive system (ICD-10) Surgical History (Updated 10/26/24 @ 11:43 by Deisy Simpson RN) Lens replaced ?Z96.1 - Presence of intraocular lens (ICD-10) History of hip replacement, total ?Z96.649 - Presence of unspecified artificial hip joint (ICD-10) H/O: hysterectomy ?Z90.710 - Acquired absence of both cervix and uterus (ICD-10) Family History (Updated 10/26/24 @ 11:47 by Deisy Simpson RN) Father Family history of stroke Family history of diabetes mellitus Brother Family history of hypertension Sister Family history of hypertension Grandmother Family history of cancer Mother Family history of CHF (congestive heart failure) Social History (Updated 10/26/24 @ 11:47 by Deisy Simpson RN) Within the past year, how often did you have a drink containing alcohol: never Score interpretation: A score less than 3 is consistent with normal alcohol consumption. Smoking status: Never smoker Non-prescribed substance use: denies use Highest level of school completed/degree received: GED or equivalent Little interest or pleasure in doing things: not at all Feeling down, depressed, or hopeless: not at all Meds Home Medications and Allergies Home Medications ?Medication ?Instructions ?Recorded ?Confirmed ?Type amlodipine 10 mg tablet 10 mg PO DAILY 10/26/24 10/26/24 History cyclosporine 0.05 % eye drops in a 1 drp ophthalmic (eye) Q12H 10/26/24 10/26/24 History dropperette (Restasis) hydrocodone 5 mg-acetaminophen 325 1 tab PO Q12H PRN pain 10/26/24 10/26/24 History mg tablet lisinopril 20 mg tablet 20 mg PO DAILY 10/26/24 10/26/24 History omeprazole 20 mg capsule,delayed 20 mg PO DAILY 10/26/24 10/26/24 History release Allergies Allergy/AdvReac Type Severity Reaction Status Date / Time codeine AdvReac Severe Vomiting Verified 10/26/24 07:43 Exam Narrative Exam Narrative: [pt is awake and alert. oriented to place, time and person HEENT: [place] conjunctiva and NL buccal mucosa Neck: Supple, no tenderness Endocrine: No Thyromegaly. Vascular: No JVD or carotid bruit. Lymphatic: No cervical lymphadenopathy. Chest: CTA no DTP. Heart RRR, no extra sound or murmur. Abd: Soft, mild periumbilical in the lower abdomen discomfort. No rebound, no guarding, no rigidity. Neuro: A A O. Nl speech, comprehension and attention. Nl and symetrical motor and tone examination through out. []] Constitutional Vital Signs, click to edit/add: Last Vital Signs Temp 98 F 10/26/24 07:37 Pulse 87 10/26/24 07:37 Resp 18 10/26/24 07:37 BP 166/70 H 10/26/24 11:02 Pulse Ox 99 10/26/24 11:02 O2 Del Method Room Air 10/26/24 07:37 Results Labs Labs: Short CBC 10/26/24 10/26/24 Range/Units 07:50 09:54 WBC 7.9 6.5 (4.0-11.0) 10^3/uL Hgb 14.2 13.6 (12.0-16.0) g/dL Hct 42.8 40.0 (36.0-48.0) % Plt Count 189 164 (150-450) 10^3/uL BMP 10/26/24 07:50 Sodium 141 Potassium 3.9 Chloride 105 Carbon Dioxide 22.3 BUN 16.0 Creatinine 1.18 H Glucose 132 H Calcium 9.2 Assessment and Plan Assessment and Plan (1) Colitis: (2) GI bleed: Plan Acute colitis. I suspect ischemic colitis. Less likely bacterial or viral colitis, less likely autoimmune colitis. This has been manifested by abdominal cramps and bloody diarrhea. Lactic acid is normal. Normal bicarbonate, no clinical evidence of that bowel. No abdominal guarding or rigidity to suggest acute surgical abdomen. I accepted to admit the patient to the medical floor Monitor H&H. IV fluid infusion. Clear liquid diet. Stool culture and C. difficile analysis Start the patient on Zosyn intravenously Recommend patient to have colonoscopy. The timing of this will be determined based on the clinical progression I also recommend patient CT of the abdomen to exclude mesenteric stenosis. Hypertension Resume preadmission home medications DVT prophylax SCD. Avoid pharmacological intervention for the next 24 hours to ensure stability of her hemoglobin. Recommend initiation of anticoagulation and aspirin tomorrow Discussed her case with her son at the bedside
[2024-10-26] MEDS: DEXAMETHASONE SOD PHOS 10 MG/ML VIAL IV (14:15)
[2024-10-26] MEDS: PIPERACILLIN SODIUM/TAZOBACTAM 3.375 GM in 0.9 % SODIUM CHLORIDE 50 ML IV ×2 (14:15→21:03)
[2024-10-26] MEDS: AMLODIPINE BESYLATE 5 MG TABLET 10 MG PO (14:15)
[2024-10-26] MEDS: PANTOPRAZOLE SODIUM 40 MG TABLET.DR PO (14:15)
[2024-10-26 16:41] LABS: Hematocrit 39.8 % (36.0-48.0); Hemoglobin 13.1 g/dL (12.0-16.0)
[2024-10-26] MEDS: CYCLOSPORINE 0.05% OP (21:03)
[2024-10-26 22:17] LABS: Hematocrit 37.2 % (36.0-48.0); Hemoglobin 12.7 g/dL (12.0-16.0)
[2024-10-27] VITALS: BP 121/61; PULSE 76; TEMP 36.6; O2SAT 95
[2024-10-27 04:00] VITALS: BP 127/67; PULSE 62; TEMP 36.3; O2SAT 95
[2024-10-27] MEDS: PANTOPRAZOLE SODIUM 40 MG TABLET.DR PO (05:41)
[2024-10-27] MEDS: PIPERACILLIN SODIUM/TAZOBACTAM 3.375 GM in 0.9 % SODIUM CHLORIDE 50 ML IV ×2 (05:41→13:00)
[2024-10-27 06:02] LABS: Hematocrit 39.3 % (36.0-48.0); Hemoglobin 13.4 g/dL (12.0-16.0); Mean Corpuscular HGB Conc 34.1 g/dL (29.9-35.2); Mean Corpuscular Hemoglobin 30.9 pg (26.7-34.0); Mean Corpuscular Volume 90.6 fL (81.0-99.0); Platelet Count 161 10^3/uL (150-450); Red Blood Count 4.34 10^6/uL (4.20-5.40); White Blood Count 6.2 10^3/uL (4.0-11.0)
[2024-10-27 06:18] LABS: Alanine Aminotransferase 19 U/L (14-59); Albumin Globulin Ratio 0.9; Albumin Level 3.4 g/dL (3.4-5.0); Alkaline Phosphatase 85 U/L (46-116); Anion Gap 12.8; Aspartate Amino Transferase 15 U/L (15-37); Blood Urea Nitrogen 13.0 mg/dL (7.0-18.0); Calcium 9.1 mg/dL (8.5-10.1); Carbon Dioxide 22.7 mmol/L (21.0-32.0); Chloride 108 mmol/L (98-107); Estimated GFR (African America >60 (>=60 mL/min/1.73m^2); Estimated GFR (Non-African Ame 53 (>=60 mL/min/1.73m^2); Globulin 3.9 g/dL; Glucose 155 mg/dL (74-106); Potassium 4.5 mmol/L (3.5-5.1); Sodium 139 mmol/L (136-145); Total Protein 7.3 g/dL (6.4-8.2)
[2024-10-27 06:23] LABS: Lactate/Lactic Acid 1.1 mmol/L (0.4-2.0)
[2024-10-27 07:12] VITALS: BP 145/65; PULSE 71; TEMP 36.5; O2SAT 94
[2024-10-27] MEDS: AMLODIPINE BESYLATE 5 MG TABLET 10 MG PO (08:17)
[2024-10-27] MEDS: LISINOPRIL 20 MG TABLET 10 MG PO (08:17)
[2024-10-27] MEDS: CYCLOSPORINE 0.05% OP (08:17)
--- NOTE | 2024-10-27 08:40 | CT_ITS ---
The [address] [address] Patient Name: BRIDGET OWENS MRN: [id number] date: 1940 Sex: F Assigned Patient Location: [place] Current Patient Location: [place] Accession/Order Number: [id number] Exam Date: 10/27/2024 12:53 Report Date: 10/27/2024 13:05 At the request of: ANNA KNOTT MD Procedure: CT angio abdomen pelvis The CT angiogram of abdomen and pelvis TECHNIQUE: Axial imaging with 2-D reconstruction.100 cc of Omnipaque 350. The CT exam was performed using one or more the following dose reduction techniques: Automated exposure control, adjustment of the MA and/or Kv according to patient size, or use of the iterative reconstruction technique. COMPARISON: 10/26/2024 History: Assessment for ischemic colitis versus a mesenteric stenosis. History of nausea vomiting and diarrhea for one day. Blood in stool. LIMITATIONS: None LOWER THORAX Unremarkable LIVER: Unremarkable GALLBLADDER: No gallbladder abnormality identified. BILE DUCTS: No dilatation SPLEEN: Unremarkable PANCREAS: Unremarkable ADRENAL GLANDS: Unremarkable KIDNEYS:Cystic changes of kidneys. AORTA: No aneurysm or dissection. Atherosclerosis. Calcified plaquing origin celiac artery. Severe stenosis. Calcified plaquing origin of the superior mesenteric artery. Moderate stenosis. Inferior mesenteric artery patent. Minimal atherosclerosis. The renal arteries patent. Bilateral calcified plaquing at origins. Moderate to severe stenoses bilaterally. RETROPERITONEUM: No significant retroperitoneal abnormalities identified. MESENTERY:Unremarkable STOMACH:Unremarkable SMALL BOWEL: The small bowel loops are nondistended. APPENDIX: The appendix is normal. COLON: Redemonstration of distal colonic colitis. URINARY BLADDER: Urinary bladder is unremarkable. REPRODUCTIVE SYSTEM: Bilateral adnexal cyst measuring up to 7.7 cm, unchanged. PNEUMOPERITONEUM: None PERITONEAL FLUID:None BONY STRUCTURES: Right hip prosthesis. Streak artifact. Suboptimal evaluation. Degenerative change. Scoliosis. ABDOMINAL WALL: Unremarkable CT/CT angio abdomen pelvis IMPRESSION: Continued findings of descending and sigmoid colitis. Mild narrowing of the superior mesenteric artery secondary to calcified plaquing. Marked narrowing of the celiac artery origin. Marked narrowing of the origins of the renal arteries. Patent inferior mesenteric artery. Impression dictated by: Fred Styles M.D. 10/27/2024 1:05 PM Dictation Location[facility] Electronically authenticated by: [id number] Y Date: 10/27/2024 13:05
[2024-10-27 08:48] LABS: C. Difficile PCR NEGATIVE
--- NOTE | 2024-10-27 09:10 | CM.NOTE ---
Rounds made with Dr. Meadows, pt will have CTA abdomen this am. Pt requesting for discharge to home, Dr. Meadows discussed with pt need for further work-up.
--- NOTE | 2024-10-27 10:19 | P.PN_ITS ---
Progress Note: Subjective Subjective Interval history: Patient is feeling much better. Resolution of abdominal cramps. Resolution of the bloody diarrhea. No nausea or vomiting. Patient is feeling great and requesting to be discharged home Exam Narrative Exam Narrative: [pt is awake and alert. oriented to place, time and person HEENT: [place] conjunctiva and NL buccal mucosa Neck: Supple, no tenderness Endocrine: No Thyromegaly. Vascular: No JVD or carotid bruit. Lymphatic: No cervical lymphadenopathy. Chest: CTA no DTP. Heart RRR, no extra sound or murmur. Abd: Soft, resolution of abdominal cramps and tenderness reported yesterday. No guarding, no rebound, no rigidity. LE: No cyanosis or clubbing, no varices or edema. Neuro: A A O. Nl speech, comprehension and attention. Nl and symetrical motor and tone examination through out. []] Constitutional Vital Signs, click to edit/add: Last Vital Signs Temp 97.7 F 10/27/24 07:12 Pulse 71 10/27/24 07:12 Resp 20 10/27/24 07:12 BP 145/65 H 10/27/24 07:12 Pulse Ox 94 L 10/27/24 07:12 O2 Del Method Room Air 10/27/24 07:12 Progress Note: Objective Labs Labs: Short CBC 10/26/24 10/26/24 10/27/24 Range/Units 15:57 22:00 05:28 WBC 6.2 (4.0-11.0) 10^3/uL Hgb 13.1 12.7 13.4 (12.0-16.0) g/dL Hct 39.8 37.2 39.3 (36.0-48.0) % Plt Count 161 (150-450) 10^3/uL BMP 10/27/24 05:28 Sodium 139 Potassium 4.5 Chloride 108 H Carbon Dioxide 22.7 BUN 13.0 Creatinine 0.99 Glucose 155 H Calcium 9.1 Liver Function 10/27/24 Range/Units 05:28 Total Bilirubin 0.5 (0.2-1.0) mg/dL AST 15 (15-37) U/L ALT 19 (14-59) U/L Alkaline Phosphatase 85 (46-116) U/L Albumin 3.4 (3.4-5.0) g/dL Progress Note: A&P Assessment and Plan (1) Colitis: (2) GI bleed: Plan Acute colitis. I suspect ischemic colitis. Less likely bacterial or viral colitis, less likely autoimmune colitis. This has been manifested by abdominal cramps and bloody diarrhea. Lactic acid is normal. Normal bicarbonate, no clinical evidence of ischemic bowel. No abdominal guarding or rigidity to suggest acute surgical abdomen. I accepted to admit the patient to the medical floor Monitor H&H. IV fluid infusion. Clear liquid diet. Stool culture and C. difficile analysis that is negative Start the patient on Zosyn intravenously Recommend patient to have colonoscopy within the next 6 weeks to rule out luminal pathology. I also recommend patient CT of the abdomen to exclude mesenteric stenosis. This will be done today. I started patient on aspirin 81 mg daily Hypertension Resume preadmission home medications DVT prophylax SCD. I initiated aspirin daily and heparin subcu
[2024-10-27] MEDS: 0.9 % SODIUM CHLORIDE 500 ML 250 ML IV (10:37)
[2024-10-27] MEDS: ASPIRIN 81 MG TABLET.DR PO (10:37)
[2024-10-27] MEDS: HEPARIN SODIUM (PORCINE) 5,000 UNIT/ML VIAL 5000 UNIT SUBQ (11:03)
--- NOTE | 2024-10-27 11:32 | CM.NOTE ---
Important Message From Medicare discussed with pt, pt verbalizes understanding and signs paper. Original given to pt and copy placed in pt's chart.
[2024-10-27 11:43] VITALS: BP 118/61; PULSE 70; TEMP 36.7; O2SAT 95
--- NOTE | 2024-10-27 13:17 | PM.DS1 ---
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 Sweet is an 84-year-old female who came in with abdominal cramps and bloody diarrhea. She was diagnosed having Acute colitis. I suspect ischemic colitis. Less likely bacterial or viral colitis, less likely autoimmune colitis. This has been manifested by abdominal cramps and bloody diarrhea. Lactic acid is normal. Normal bicarbonate, no clinical evidence of ischemic bowel. No abdominal guarding or rigidity to suggest acute surgical abdomen. I accepted to admit the patient to the medical floor Monitor H&H. IV fluid infusion. Clear liquid diet. Patient did not like clear liquid diet and requested for liquid diet Stool culture and C. difficile analysis that is negative Start the patient on Zosyn intravenously Recommend patient to have colonoscopy within the next 6 weeks to rule out luminal pathology. This will be arranged to be done at [facility] in 6 weeks I also recommend patient CT of the abdomen to exclude mesenteric stenosis. This will be done today. 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 The inferior mesenteric artery is patent which is the artery that supplies the descending and the sigmoid colon. Patient will be arranged to follow-up with the vascular team at [facility] I started patient on aspirin 81 mg daily Patient is feeling great. Complete resolution of abdominal cramps. Complete resolution of the bloody diarrhea. Her hemoglobin is stable. Patient is requesting to be discharged home. Hypertension Resume preadmission home medications DVT prophylax SCD. I initiated aspirin daily and heparin subcu Patient has multiple medical issues as listed above and others that are not listed. All appear to be stable. Patient is requesting to be discharged home today. She is not willing to stay any longer for additional monitoring, diagnostic or treatment. Hemoglobin is stable. Resolution of her abdominal cramps. The resolution of her bloody diarrhea. At this time, I do not have any legal justification nor I have any clear or strong clinical justification to extend inpatient hospitalization against her will and desired to be discharged home. Patient however will require close and frequent monitoring as well as additional work-up, investigation and therapeutic intervention that could take place from this point on post discharge. That is to prevent relapse, decompensation, rehospitalization and other medical implications. Patient will be arranged to follow-up with GI for colonoscopy to rule out luminal pathology. Follow-up with vascular regarding her vascular abnormality seen on CTA. I instructed patient to ask her primary care doctor to obtain [facility] record entirely to address abnormalities seen on labs and imaging that I have and have not addressed during this hospitalization, follow-up on pending blood work, imaging and pathology is if available and to follow-up on needed medical care in the outpatient setting. Time Spent with Patient Time attestation: Total time spent providing and/or coordinating discharge services: Exam Constitutional Vital Signs, click to edit/add: Last Vital Signs Temp 98.1 F 10/27/24 11:43 Pulse 70 10/27/24 11:43 Resp 20 10/27/24 11:43 BP 118/61 10/27/24 11:43 Pulse Ox 95 10/27/24 11:43 O2 Del Method Room Air 10/27/24 11:43 DS: Data Data Completed and Pending Labs on day of discharge: Labs from last 24 hours 10/27/24 10/26/24 10/26/24 05:28 22:00 19:55 WBC 6.2 RBC 4.34 Hgb 13.4 12.7 Hct 39.3 37.2 MCV 90.6 MCH 30.9 MCHC 34.1 RDW 12.4 Plt Count 161 MPV 12.7 Sodium 139 Potassium 4.5 Chloride 108 H Carbon Dioxide 22.7 Anion Gap 12.8 BUN 13.0 Creatinine 0.99 Est GFR ( Amer) >60 Est GFR (Non-Af Amer) 53 L BUN/Creatinine Ratio 13.1 Glucose 155 H Lactate 1.1 Calcium 9.1 Total Bilirubin 0.5 AST 15 ALT 19 Alkaline Phosphatase 85 Total Protein 7.3 Albumin 3.4 Globulin 3.9 Albumin/Globulin Ratio 0.9 C. difficile Toxin PCR Negative 10/26/24 15:57 WBC RBC Hgb 13.1 Hct 39.8 MCV MCH MCHC RDW Plt Count MPV Sodium Potassium Chloride Carbon Dioxide Anion Gap BUN Creatinine Est GFR ( Amer) Est GFR (Non-Af Amer) BUN/Creatinine Ratio Glucose Lactate Calcium Total Bilirubin AST ALT Alkaline Phosphatase Total Protein Albumin Globulin Albumin/Globulin Ratio C. difficile Toxin PCR Discharge Plan Discharge Disposition: Home, Self-Care Condition: Fair Discharge Medications: New aspirin 81 mg Tablet,Delayed Release (Dr/Ec) 81 mg PO QD Qty: 30 2RF amoxicillin-pot clavulanate 875-125 mg tablet 1 tab PO BID Qty: 16 0RF Continued hydrocodone-acetaminophen 5-325 mg tablet 1 tab PO Q12H PRN (Reason: pain) amlodipine 10 mg tablet 10 mg PO DAILY omeprazole 20 mg capsule,delayed release(DR/EC) 20 mg PO DAILY cyclosporine [Restasis] 0.05 % dropperette 1 drp ophthalmic (eye) Q12H Changed lisinopril 20 mg tablet 10 mg PO DAILY Qty: 0 0RF Print Language: Pashto Patient Instructions: Colitis (ED) Activity Restrictions/Additional Instructions: I may not have addressed or treated all of your medical illnesses or the abnormal blood work or imaging studies during this hospitalization. Please ask your primary care provider to obtain [facility] records entirely to follow up on all of the abnormal physical, laboratory, and imaging findings that I have not addressed. Please return back to the emergency room if you develop any recurrent episode of a bloody stool Please return back to the emergency room or seek medical attention if your symptoms worsen or return. Please follow-up with colon specialist as listed for colonoscopy to be done in 6 to 8 weeks Please follow-up with vascular doctor regarding narrowing of the gut and kidney arteries Discharging you from [facility] does not mean that your medical care ends here and now. You may still need additional monitoring, work up, investigation, and treatment plan to be handled from this point on by out patient providers including your primary care provider and specialists. For any medication question, please contact your retail pharmacist or your primary care provider. Thank you. Forms: Portal Instructions Follow Up Appointments: 10/31 @ 10:45am with MING Castro [place] [phone] 12/19 @ 11am with [facility] [address] [place] [address] Dominick Hatch [phone]
--- NOTE | 2024-10-27 15:39 | SWNOTE1 ---
SHEREE called MING Peña office and spoke to Ritika (admin secretary). SHEREE advised that Dr. Meadows is recommending a pelvic ultrasound to be completed prior to follow up appointment. SHEREE advised Ritika that SHEREE will be sending over CT of abdomen and pelvis if that could be provided to MING Peña. Ritika voiced understanding.
--- NOTE | 2024-10-27 15:57 | CM.NOTE ---
Called pt's daughter whom she has listed as emergency contact. Updated pt's daughter that Yaa Peña office will be reaching out to schedule a pelvic ultrasound for f/u of findings on CT abdomen and pelvis. Sarita pt's daughter will follow through with Dr. Peña office to make sure pt has pelvic ultrasound scheduled.
--- NOTE | 2024-10-28 15:10 | CM.DCFOLLOWU ---
Person spoke with:patient How are you feeling? alright How is your pain?none Did you understand your discharge instructions?yes Do you have any questions about your discharge instructions? no Were you given any prescriptions at discharge? yes Were you able to get your prescriptions filled? yes Do you understand how to take your medications as ordered? yes Do you have any questions about your follow up appointment and do you plan to keep your follow up appointment? no questions, we reviewed follow ups and she is aware of all follow ups Is there anything else that you would like to discuss? no Questions/Comments/Concerns/Other: none
== END 2024-10-27 14:19 | disposition home or self-care (01) | DRG 395 ==
LOC: ER 10:46 → MS 11:29
PROVIDERS: Admitting Provider Internal Medicine; Emergency Provider Emergency Medicine; PCP Nurse Practitioner; Visit Provider Internal Medicine
DX: K55.039 Acute (reversible) ischemia of large intestine, extent unspecified (principal); I10 Essential (primary) hypertension; N94.89 Other specified conditions associated with female genital organs and menstrual cycle; I70.1 Atherosclerosis of renal artery; K55.1 Chronic vascular disorders of intestine; I70.8 Atherosclerosis of other arteries; Z79.899 Other long term (current) drug therapy; Z90.710 Acquired absence of both cervix and uterus; Z96.649 Presence of unspecified artificial hip joint; Z79.82 Long term (current) use of aspirin
CPT/HCPCS: 36415; 74174; 74177; 80048; 80053; 83605; 85014; 85018; 85025; 85027; 87045; 87046; 87427; 87493; 93005; 96365; 99285; G0328; J0744; J1100; J1644; J1836; J2543; Q9967

== ENCOUNTER 2025-03-04 16:08 | Emergency (ER) | payer MEDICARE, SELFPAY ==
--- OUTSIDE RECORDS SUMMARY | 2024-10-31 05:45 | XMS_ITS ---
Author Organization [facility] Servic es Address [address] [place] [address] Care Team Providers Care Seismic Prospecting Observer Helper Name Role Phone Yaa Peña Primary Care Provider REASON FOR VISIT hosp follow up Encounters Encounter Location Date Provider Diagnosis [address] [place] [address] [place] [address] 10/31/2024 Yaa Peña Plan Of Treatment Next Appt Details Provider Name:Yaa patel, 04/28/2025 02:30:00 PM, [address], [place], [address], Progress Notes * KARIN OWENSOB:1940 (85 yo F)Acc No.[id number]:10/31/2024 Progress Note Patient: BRIDGET HENDERSON :?Yaa PeñaDOB:1940???Age:84 Y???Sex: FemaleDate:10/31/2024Phone:[phone]:[id number] [facility] Subjective: * Chief Complaints: * H osp follow up Billing Information: * Procedure Codes: * Electronic signature of Yaa Peña CNP-ANIRUDH, TOWEL INSPECTOR.ROSA MARIA.[id number] on 03/04/2025 at 04:28 PM ESTSign off status: Pending * Provider: Morgan Peña Date: 0 10/31/2024 Generated for Printing/Faxing/eTransmitting on:?03/04/2025 04:28 PM EST
[2025-03-04 16:11] VITALS: BP 162/69; PULSE 88; TEMP 36.6; O2SAT 98; BMI 23.7
--- OUTSIDE RECORDS SUMMARY | 2025-03-04 16:28 | XMS_ITS | Patient Health Record ---
Author Organization [facility] Servic es Address [address] [place] [address] Care Team Providers Care Deputy Sheriff Civil Division Name Role Phone Yaa Peña Primary Care Provider Allergies Allergen (clinical drug ingredient) Drug/Non Drug Allergy documented on EMR Reaction Allergy Type Onset Date Status codeine Codeine vomiting Drug Allergy Active Reason For Referral No Information Medications Medication SIG (Take, Route, Frequency, Duration) Notes Start Date End Date Status Atorvastatin Calcium 40 MG Tablet TAKE 1 TABLET BY MOUTH DAILY Oral; Duration: 82 Days ActiveAspirin 81 81 MG Tablet Delayed Release1 tablet Orally Once a dayActive HYDROcodone-Acetaminophen 5-325 MG Tablet 1 tablet Oral every 12 hours; Duration: 30 days As needed 5ActiveamLODIPine Besylate 10 MG Tablet1 tablet Orally Once a day; Duration: 90 daysActiveLisinopril 20 MG Tablet1 tablet Orally Once a day; Duration: 90 daysActiveOmeprazole 20 MG Capsule Delayed Release1 capsule 1/2 to 1 hour before morning meal Orally Once a day; Duration: 90 daysActive Amoxicillin-Pot Clavulanate 875-125 MG TabletTAKE 1 TABLET BY MOUTH TWICE DAILY Oral; Duration: 8 DaysActiveDME - Handicap Placard Handicap Placard DME Quytsypas38/26/2025Active Social History Tobacco Use: Social History Observation Description Date Details (start date - stop date) Never Smoker NA - NA Social History Food Insecurity ScreeningSocial InfoQuestionAnswerNotesFood Insecurity Screening Within the last 12 months, have you been worried about your food running out before you received money to buy more?NoWithin the last 12 months, did the food you buy not last, and you didn't have money to buy more?NoWithin the last 12 months, have you had any difficulty affording to eat balanced meals including all food groups (fruits, vegetables, protein, and whole grains)?NoDrug/Alcohol: Social InfoQuestionAnswerNotesAUDIT-C (Standard)Did you have a drink containing alcohol in the past year?XoKapdvw9KrlauevhxggyyqDhxpcfaiCeetrtp Use:Social Info QuestionAnswerNotesTobacco Control (Standard)Tobacco use:Nonsmoker Problems Problem Type SNOMED Code ICD Code Onset Dates Problem Status W/U Status Risk Notes Problem Gastro-esophageal re flux disease without esophagitis (225065123) Gastro-esophageal reflux disease without esophagitis (K21.9) ActiveconfirmedProblemOsteoarthritis (967905896)Osteoarthritis (M19.90)Active confirmedProblemBenign hypertension (40085540)Benign hypertension (I10)Active confirmed Vital Signs Heart Rate 70 /min 12/30/2024 Jbmeyrolynu54.4 degrees Ggfqsiqlxp95/21/5129Ujddwudm77 %12/30/2024lood pressure lczqiujpm30 mm Hg12/30/20245998Ycsboo64.5 in12/30/2024lood pressure golpgwdo951 mm Hg12/30/20241975Cdatqs845.0 lbs1MI24.23 kg/m212/30/2024 Encounters Encounter Location Date Provider Diagnosis [facility] [address] [facility] [place] [address] 11/04/2024 [facility] [facility] [place] [address] [facility] [place] [address] [facility] [place] [address] [facility] [facility] [place] [address] [place] [address]/ValeriFormerly [facility] SeacoastRig hip pain M25.551 ; Benign hypertension I10 and Gastro-esophageal reflux disease without esophagitis K21.9[facility] [address] [place] [address]/Valerie CastilloOsteoarthritis M19.90 and Colitis K52.9[facility] [address] [place] [address] 12/30/2024Valerie CastilloMedicare annual wellness visit, subsequent Z00.00 Assessments Encounter Date Diagnosis (ICD Code) Assessment Notes Treatment Notes Treatment Clinical Notes Section Notes 10/02/2024 Right hip pain (ICD-10 - M25.551 ) Patient has reported history of right hip replacement. Still has pain in this hip. She also has chronic right shoulder pain. Typically takes Anacin PRN for pain. She does take [place] 5/325 mg at timesPRN. Last refill per [place] was 09/23/24 for #30 tablets. Controlled substance agreement form completed with patient today.10/02/2024enign hypertension (ICD-10 - I10)Blood pressure is controlled. 130/48. Continue lisinopril and amlodipine.11/04/2024Osteoarthritis (ICD-10 - M19.90)11/04/2024olitis (ICD-10 - K52.9)Pateint is no longer having loose stools or blood in stool. She does have an appointment with gastro enterology December 19 for further evaluation. Education with patient today about colonoscopy.12/30/2024Medicare annual wellness visit, subsequent (ICD-10 - Z00.00) Patient presented to office today for their Medicare Annual Wellness Visit. Education was provided on healthy nutrition, including a diet rich in fruits and vegetables, minimizing simple carbohydrates, salt, and saturated fats. Encouraged regular cardiovascular exercise suchas walking at least 30 minutes daily, 5 times per week. Emphasized preventive health measures and educated pt on fall prevention and community-based lifestyle interventions to help reduce health risks and promote healthy living. 10/02/2024Gastro-esophageal reflux disease without esophagitis (ICD-10 - K21.9) LImit triggering foods and beverages. Reorder omeprazole 20 mg oral daily. 11/04/2024OtherRenal stenosis per CT of abdomen while in hospital. Patient will be seeing vascular tommorrow at 10am for further discussion regarding stent placement.. Plan Of Treatment Next Appt Details Provider Name:Yaa patel, 04/28/2025 02:30:00 PM, [address], [place], [address], Insurance Providers Payer Name Payer Address Payer Phone Subscriber Number Group Number Insured Name Patient Relationship to Insured Coverage Start Date Coverage End Date [facility] [address] [address] [place] [address] [id number] BRIDGET OWENS Self - patient is the insured Medical (General) History Medical History History ICD Code Rt Hip replacement Rt shoulder painRt knee painHTNheart attackcolitisSurgical History Surgery Date(Month/Year) eye surgeries x4 hysteroectomyhip bfghgnn9018sej replacementHospitalization History Reason Date(Month/Year) colitis 10/2024 see surgies
--- OUTSIDE RECORDS SUMMARY | 2025-03-04 16:28 | XMS_ITS | Clinical Summary ---
Author Organization [facility] Address [address] [place] [address] Care Team Providers Care Derrick Barge Operator Name Role Phone Yaa Peña Unavailable [phone] Allergies Active AllergyReactionsCriticalityNoted DateCommentsCodeineDiarrhea,Nausea Only, Unknown,GI ihpyudwtiib48/27/2017 Medications MedicationSigDispense QuantityRefillsLast FilledStart DateEnd DateStatus amLODIPine (Norvasc) 10 MG tablet Take 10 mg by mouth in the morning.06/06/2022ctive aspirin 325 MG tablet every 12 (twelve) hoursActive HYDROcodone-acetaminophen ([place]) 5-325 MG tablet Take 1 tablet by mouth every 12 (twelve) hours if jjiivg9006/08/2022ctive lisinopril 20 MG tablet Take 20 mg by mouth in the morning.06/06/2022ctive omeprazole (PriLOSEC) [address] capsule Active prednisoLONE acetate (Pred-Forte) 1 % ophthalmic suspension Indications:Post corneal transplantINSTILL 1 DROP IN THE AFFECTED EYE(S) FOUR TIMES DAILY 15 mL 5Active cycloSPORINE (Restasis) 0.05 % ophthalmic emulsion INSTILL 1 DROP INTO EACH EYE EVERY MORNING AND BEFORE AMQLGEO74/27/2025Active Active Problems ProblemNoted DateDiagnosed DatePost corneal tyrnqxudqw13/11/2023 Keratoconjunctivitis sicca of both eyes not specified as Sjogren's009/19/2022 Blepharitis of upper and lower eyelids of both eyes09/19/2022 Encounters DateTypeDepartmentCare NmqkYfdeuhatbyl79/24/2025 1:00 PM EDTOffice Visit [facility] [address] [place] [address] Eloy Sosa DO Post corneal transplant (Primary Dx); Keratoconjunctivitis sicca of both eyes not specified as Sjogren's; Blepharitis of upper and lower eyelids of both eyes, unspecified type12/03/2024 [facility] [address] [place] [address] Eloy Sosa, 12/03/2024Travelfrom Last 3 Months Social History Tobacco UseTypesPacks/DayYears UsedDateSmoking Tobacco: NeverSmokeless Tobacco: Never Tobacco Cessation:Counseling Given: Not Answered CommentsUnknownSex and Gender InformationValueDate RecordedSex Assigned at BirthNot on fileLegal PyoCkxyzk97/01/2023 8:33 PM EDTGender IdentityNot on fileSexual OrientationNot on file Last Filed Vital Signs Vital SignReadingTime TakenCommentsBlood Qwnfkktk469/7002 12:00 PM EST Pulse--Fmblkttaaaw29.3 ??C (97.4 ??F)02/20/2024 12:56 PM ESTRespiratory Rate-- Oxygen Saturation--Inhaled Oxygen Concentration--Nihghz26.9 kg (143 lb) 09/02/2024 2:38 PM BJGNgufwn375.5 cm (5' 2 )09/02/2024 2:38 PM EDTBody Mass Index26.16009/02/2024 2:38 PM EDT Plan of Treatment DateTypeDepartmentCare Team (Latest Contact Info)Yzzhncpqepo29/20/2026 1:15 PM EDTOffice Visit [facility] [address] [place] [address] Eloy Sosa, DO [address] [place] [address] Health MaintenanceDue DateLast DoneCommentsPneumococcal Vaccine: 65+ Years (1 of 1 - PCV)01/03/1990Influenza Vaccine (#1)2024 Insurance Care Teams Team MemberRelationshipSpecialtyStart DateEnd Date Yaa Peña CRNP [address] [place] [address] Referring PhysicianNurse Practitioner09/18/23
--- NOTE | 2025-03-04 16:29 | CT_ITS ---
The [address] [address] Patient Name: BRIDGET OWENS MRN: [id number] date: 1940 Sex: F Assigned Patient Location: ED.MAIN Current Patient Location: ED.MAIN Accession/Order Number: [id number] Exam Date: 03/04/2025 16:38 Report Date: 03/04/2025 17:28 At the request of: PEEWEE BROOKS Procedure: CT head/brain wo con Unenhanced head CT TECHNIQUE: Contiguous axial imaging of the head. The CT exam was performed using one or more the following dose reduction techniques: Automated exposure control, adjustment of the MA and/or Kv according to patient size, or use of the iterative reconstruction technique. COMPARISON: None HISTORY: Head injury. Patient on baby aspirin. VENTRICLES: Within normal limits ATROPHY: Diffuse atrophy BRAIN PARENCHYMA: Decreased density of the white matter is most consistent with chronic small vessel disease. HEMORRHAGE: None HERNIATION: No mass effect or herniation INFARCTION: No recent vascular distribution infarction is seen. EXTRA-AXIAL FLUID COLLECTIONS None MIDBRAIN: Unremarkable CRISPIN: Unremarkable MEDULLA: Unremarkable SINUSES: Unremarkable ORBITS: Grossly unremarkable MASTOIDS: Unremarkable BONY STRUCTURES Intact ADDITIONAL FINDINGS: CT/CT head/brain wo con IMPRESSION: No acute findings. Impression dictated by: Fred Styles M.D. 03/04/2025 5:28 PM Dictation Location: [facility] Electronically authenticated by: [id number] Y Date: 03/04/2025 17:28
--- NOTE | 2025-03-04 16:29 | XR_ITS ---
The [address] [address] Patient Name: BRIDGET OWENS MRN: [id number] date: 1940 Sex: F Assigned Patient Location: ED.MAIN Current Patient Location: ED.MAIN Accession/Order Number: [id number] Exam Date: 03/04/2025 16:38 Report Date: 03/04/2025 17:24 At the request of: PEEWEE BROOKS Procedure: XR hand RT min 3V 3 views right hand HISTORY: Right hand injury. Moderate degeneration. Degenerative subluxation. No acute displaced fracture. Dorsal soft tissue swelling. XR/XR hand RT min 3V IMPRESSION: No acute displaced fracture. Impression dictated by: Fred Styles M.D. 03/04/2025 5:24 PM Dictation Location: [place] [address] Electronically authenticated by: [id number] Y Date: 03/04/2025 17:24
--- NOTE | 2025-03-04 16:29 | PC.NURSE ---
radial pulse present in right wrist, 2 lacs to right side forehead, non bleeding at this time
--- OUTSIDE RECORDS SUMMARY | 2025-03-04 16:29 | XMS_ITS | Clinical Summary ---
Author Organization [facility] Address [address] [place] [address] Phone Care Team Providers Care Database Design Analyst Name Role Phone Unavailable Primary Care Provider Unavailabl e Social History Tobacco UseTypesPacks/DayYears UsedDateSmoking Tobacco: Never Assessed CommentsUnknownSex and Gender InformationValueDate RecordedSex Assigned at Not on fileLegal ZwxRsahtv80/26/2022 1:44 AM ESTGender IdentityNot on fileSexual OrientationNot on file Plan of Treatment Not on file
--- OUTSIDE RECORDS SUMMARY | 2025-03-04 16:29 | XMS_ITS | Clinical Summary ---
Author Organization [employer] tem Address [id number] [address] [place] [address] Care Team Providers Care Database Support Name Role Phone Unavailable Primary Care Provider Unavailabl e Allergies Active AllergyReactionsCriticalityNoted DateCommentsCodeineDiarrhea,Nausea, Xqgpavfd05/27/2017 Medications MedicationSigDispense QuantityRefillsLast FilledStart DateEnd DateStatus aspirin-caffeine 400-32 mg tablet Take by mouth as needed.Active LOTEMAX 0.5 % ophthalmic gel Administer 1 drop to both eyes in the morning and 1 drop before bedtime.5 12/18/2018Active aspirin 81 mg Indications:Atherosclerosis of [place] coronary artery of [place] heart without angina pectorisTake 1 tablet (81 mg total) by mouth daily. 150 tablet 1Active ofloxacin (OCUFLOX) 0.3 % ophthalmic solution 08/18/2021ctive cycloSPORINE (RESTASIS) 0.05 % ophthalmic emulsion 1 drop in the morning and 1 drop before bedtime.Active melatonin (CIRCADIN) tablet Take 1 tablet (1 mg total) by mouth.08/15/2021ctive prednisoLONE acetate (PRED FORTE) 1 % ophthalmic suspension 11/06/2022ctive loperamide (IMODIUM) 2 mg capsule Indications:Loose stoolsTake 1 capsule (2 mg total) by mouth 4 (four) times a day as needed for diarrhea. 30 capsule 613Active amLODIPine (NORVASC) 10 mg tablet Indications:Essential hypertensionTake 1 tablet (10 mg total) by mouth in the morning. 90 tablet 5Active lisinopriL (PRINIVIL,ZESTRIL) 20 mg tablet Indications:Essential hypertensionTake 1 tablet (20 mg total) by mouth in the morning. 90 tablet 5Active omeprazole (PriLOSEC) 20 mg capsule Indications:GERD without esophagitisTake 1 capsule (20 mg total) by mouth every morning before breakfast. 90 capsule 5Active HYDROcodone-acetaminophen (NORCO) 5-325 mg per tablet Indications:Arthritis, multiple joint involvement,Chronic pain of right hip, Right rotator cuff tear arthropathyTake 1 tablet by mouth every 12 (twelve) hours as needed for pain. Max Daily Amount: 2 tablets 40 tablet 5Active Active Problems ProblemNoted DateDiagnosed DateElevated glucose level12/09/2019Narcotic drug use 09/16/2019Abnormal mammogram of right hzbgeg6810/03/2018Stage 3 chronic kidney jzzodfr2409/30/2018Arthritis, multiple joint aoylqruqhte15/05/2019Encounter for screening mammogram for malignant neoplasm of crrwuc4606/26/2017Chronic pain of right hip06/11/2017Screening for diabetes mellitus (DM)02/20/2017Post-menopausal 02/20/20179274Jgmsmbktgzmq32/09/2017Atherosclerosis of [place] coronary artery of [place] heart without angina ldbpuqay17/09/2017Myocardial infarct, old07/18/2016 Allergic rhinitis due to zszsta0707/18/2016Essential axmtsewubjzh53/09/2017 Resolved Problems ProblemNoted DateDiagnosed DateResolved UwprKysyvqjvoftnfzj44/15/201909/29/2020 Chronic iliotibial band syndrome of right sideReflux dsazbzgdrdc77/07/2021 Family History Medical HistoryRelationNameCommentsDiabetesFatherCoronary artery diseaseOther HyperlipidemiaOtherHypertensionOtherStrokeOtherBreast cancerPaternal Grandmother 80sBil Breast CancerNeg HxRelationNameStatusCommentsFatherDeceasedMotherDeceased OtherPaternal Grandmother Social History Tobacco UseTypesPacks/DayYears UsedDateSmoking Tobacco: NeverSmokeless Tobacco: Never Tobacco Cessation:Counseling Given: Not Answered Alcohol UseStandard Drinks/WeekCommentsNo0 (1 standard drink = 0.6 oz pure alcohol)PHQ-2AnswerDate RecordedTotal Qtpgd1945ChildcareAnswerDate OafmicuhZpryajjfuTolxxqa49/12/2019EmploymentAnswerDate RecordedEmploymentUnknown 08/21/2018Hunger ScreeningAnswerDate RecordedWithin the past 12 months we worried whether our food would run out before we got money to buy more.Never True08/05/2024Within the past 12 months the food we bought just didn't last and we didn't have money to get more.Never True08/05/2024Purpose - LifeAnswerDate RecordedPurpose and direction in yygqLgytmie48/11/2021CommentsNoSex and Gender InformationValueDate RecordedSex Assigned at BirthNot on fileLegal Sex Ppmvqu8810/15/2014 11:39 AM EDTGender IdentityNot on fileSexual OrientationNot on file Last Filed Vital Signs Vital SignReadingTime TakenCommentsBlood Uofdzbpp239/58008/05/2024 1:38 PM EDT Ajjow045208/05/2024 1:38 PM TGVDhizujvqxnf29.1 ??C (98.8 ??F)08/05/2024 1:38 PM EDTRespiratory Pyrw409108/05/2024 1:38 PM EDTOxygen Zeccwjriqz01%08/05/2024 1:38 PM EDTInhaled Oxygen Concentration--Zounoq57.9 kg (143 lb)08/05/2024 1:38 PM EDT Bfbfjl890.7 cm (5' 2.87 )08/05/2024 1:38 PM EDTBody Mass Index25.43008/05/2024 1:38 PM EDT Plan of Treatment Health MaintenanceDue DateLast DoneCommentsDTaP,Tdap and Td Vaccines (1 - Tdap) 01/03/1959Zoster (Shingles) Vaccine (1 of 2)01/03/1990RSV ( or age 60+ yrs) (1 - 1-dose 75+ series)01/03/2015COVID-19 Vaccine ( season) , 12/15/2022, 12/09/2021, Additional history existsInfluenza Kflbxhk2311/10/2024Medicare Annual Wellness Visit511/, 01/30/2023, 01/17/2022, Additional history existsDepression Ephunczjv48/ Fall Risk Hlntlyyxa94Tobacco Jkzfwiosk60 Medical Devices Not on file Insurance
--- NOTE | 2025-03-04 16:32 | CT_ITS ---
The [address] [address] Patient Name: BRIDGET OWENS MRN: [id number] date: 1940 Sex: F Assigned Patient Location: ED.MAIN Current Patient Location: ED.MAIN Accession/Order Number: [id number] Exam Date: 03/04/2025 16:38 Report Date: 03/04/2025 17:31 At the request of: PEEWEE BROOKS Procedure: CT cervical spine wo con CT Cervical Spine withoutcontrast TECHNIQUE: Axial imaging with 2-D and 3-D reconstruction. The CT exam was performed using one or more the following dose reduction techniques: Automated exposure control, adjustment of the MA and/or Kv according to patient size, or use of the iterative reconstruction technique. COMPARISON: None HISTORY: Fell. Head injury. POST SURGERY CHANGES: None BONY ALIGNMENT: Adequate BONY SPINAL CANAL: Patent central bony canal FRACTURE: None BONY LESIONS: None SOFT TISSUES: Unremarkable DEGENERATIVE CHANGES: Moderate multilevel degenerative change LUNG APICES: Unremarkable ADDITIONAL FINDINGS: Small thyroid nodularity of the thyroid gland CT/CT cervical spine wo con IMPRESSION: No acute process Impression dictated by: Fred Styles M.D. 03/04/2025 5:31 PM Dictation Location: [place] [address] Electronically authenticated by: [id number] Y Date: 03/04/2025 17:31
--- NOTE | 2025-03-04 16:37 | ED_ITS ---
<Statement entered by Yogesh Reyes DO - 03/05/25 07:12> This documentation has been reviewed and approved. HPI HPI - General Adult General Chief complaint: Fall Stated complaint: FALL Time Seen by Provider: 03/04/25 16:11 Source: patient Mode of arrival: walk-in History of Present Illness HPI narrative: Patient is an 85-year-old female that presents to the emergency department via private vehicle with complaints of fall about 2 hours prior to arrival. Patient states that she tripped outside and hit her head on concrete, no LOC. She does take aspirin 81 mg daily. Her son is at bedside and states that she was a little disoriented at first but is acting normally now. She does have a small laceration above her right eye. Her tetanus immunization is not up-to-date but she states that she does not do tetanus immunizations . She also complains of right hand pain and swelling. She is right-handed. Related Data Home Medications ?Medication ?Instructions ?Recorded ?Confirmed amlodipine 10 mg tablet 10 mg PO DAILY 10/26/2410/10 cyclosporine 0.05 % eye drops in a 1 drp ophthalmic (e ye) Q12H 10/26/24 10/26/24 dropperette (Restasis) hydrocodone 5 mg-acetaminophen 325 1 tab PO Q12H PRN p ain 10/26/24 10/26/24 mg tablet omeprazole 20 mg capsule,delayed 20 mg PO DAILY 10/26/24 release Previous Rx's ?Medication ?Instructions ?Recorded aspirin 81 mg tablet,delayed 81 mg PO QD #30 tabs 10/10 11/03 release lisinopril 20 mg tablet 10 mg (1/2 x 20 mg) PO DAILY #0 10/27/24 tabs Allergies Allergy/AdvReac Type Severity Reaction Status Date / Time codeine AdvReac Severe Vomiting Verified 10/26/24 07:43 Opioid HPI Opioid Management Most Recent Opioid Data: Last ORT Total Score 0 10/26/24, 11:32 Last ORT Risk Category Low Risk 10/26/24, 11:32 Review of Systems ROS Status of ROS 10 or more systems reviewed and unremark able except as noted in history and below [facility] Medical History (Updated 03/04/25 @ 17:44 by TODD Banks) History of [place] (myocardial infarction) ?I25.2 - Old myocardial infarction (ICD-10) Arthritis ?M19.90 - Unspecified osteoarthritis, unspecified site (ICD-10) History of colitis ?Z87.19 - Personal history of other diseases of the digestive system (ICD-10) Surgical History (Updated 10/26/24 @ 11:43 by Deisy Simpson RN) Lens replaced ?Z96.1 - Presence of intraocular lens (ICD-10) History of hip replacement, total ?Z96.649 - Presence of unspecified artificial hip joint (ICD-10) H/O: hysterectomy ?Z90.710 - Acquired absence of both cervix and uterus (ICD-10) Family History (Updated 10/26/24 @ 11:47 by Deisy Simpson RN) Father Family history of stroke Family history of diabetes mellitus Brother Family history of hypertension Sister Family history of hypertension Grandmother Family history of cancer Mother Family history of CHF (congestive heart failure) Social History (Updated 10/26/24 @ 11:47 by Deisy Simpson RN) Within the past year, how often did you have a drink containing alcohol: never Score interpretation: A score less than 3 is consistent with normal alcohol consumption. Smoking status: Never smoker Non-prescribed substance use: denies use Highest level of school completed/degree received: GED or equivalent Little interest or pleasure in doing things: not at all Feeling down, depressed, or hopeless: not at all Exam Narrative Exam Narrative: General: No distress, age-appropriate Skin: Warm, dry, no pallor. No rash. Approximately 1 cm laceration just superior to the right eyebrow, hemostatic. Head: Normocephalic, atraumatic. Neck: Supple, non-tender. Eye: Pupils are equal, round and EOMI. No scleral icterus. Ears, Nose, Mouth, and Throat: No nasal mucosal hypertrophy. Oral mucosa is moist, no posterior oropharynx erythema, uvula is mid-line Cardiovascular: Regular Rate and Rhythm without murmur, gallop or rub. Respiratory: No accessory muscle use or respiratory distress. Lungs are clear to auscultation, no wheezing, rales or rhonchi Chest Wall: no tenderness Back: No midline thoracic or lumbar vertebral tenderness. Musculoskeletal: Full ROM of all extremities, except right fingers and thumb given swelling to right hand. There is some ecchymosis on the dorsal aspect of the hand as well. No calf or popliteal tenderness GI: Abdomen is soft, non-distended, non tender to palpation. No masses appreciated. No rebound, guarding, or rigidity noted. Neurological: A&O x4. No cranial nerve dysfunction observed. No truncal ataxia. Moves all extremities. Sensation intact. Psychiatric: Cooperative and interactive. Normal mood and affect. Constitutional Vital Signs, click to edit/add: Last Vital Signs Temp 97.8 F 03/04/25 16:11 Pulse 71 03/04/25 18:04 Resp 18 03/04/25 18:04 BP 132/61 03/04/25 18:04 Pulse Ox 96 03/04/25 18:04 O2 Del Method Room Air 03/04/25 16:11 Documenting provider has reviewed patient's vital signs: yes Course Vital Signs Vital signs: Vital Signs Temperature 97.8 F 03/04/25 16:11 Pulse Rate 88 03/04/25 16:11 Respiratory Rate 20 03/04/25 16:11 Blood Pressure 162/69 H 03/04/25 16:11 Pulse Oximetry 98 03/04/25 16:11 Oxygen Delivery Method Room Air 03/04/25 16:11 Temperature 97.8 F 03/04/25 16:11 Pulse Rate 71 03/04/25 18:04 Respiratory Rate 18 03/04/25 18:04 Blood Pressure 132/61 03/04/25 18:04 Pulse Oximetry 96 03/04/25 18:04 Oxygen Delivery Method Room Air 03/04/25 16:11 Medical Decision Making MDM Narrative Medical decision making narrative: This is an 85-year-old female that presented with complaints of mechanical fall with head strike, small laceration over her right eyebrow, and right hand pain and swelling. On aspirin 81 mg daily. On arrival patient is GCS 15, in no distress. She has ice pack on her right hand. She has a hemostatic approximately 1 cm laceration above her right eyebrow. No neurological deficits. No neck pain but given age and head strike cannot clear C-spine per [facility] criteria. CT head and cervical spine ordered. X-ray right hand ordered. Her tetanus is not up-to-date but she declines a booster here. Risks and benefits discussed of this and she accepts these risks. CT head, cervical spine, and x-ray of right hand were negative for acute traumatic injuries and I did discuss results with her and her son. I recommen ded a wrist brace or volar splint for her right hand given the pain and swelling. She declined these and states she thinks it is just a sprain . I discussed the possibility that there could be an occult fracture and if the pain persisted she would need to see her PCP or orthopedics and consider further imaging. I recommended limiting pushing/pulling/lifting with her right hand and continue with RICE and NSAIDs. Her laceration was replaced with Dermabond, see procedure note. Patient's vital signs remained stable during her ED course, she remained GCS 15, and there were no signs of any neurological deficits. Return to ED precautions for any new or worsening symptoms were discussed. Patient was discharged in stable condition with plan for PCP follow-up. Differential Diagnosis Differential Diagnosis: Intracranial hemorrhage, cervical fracture, laceration, hand fracture Imaging Data CT scan - head: Attestation: I have reviewed the pertinent imaging results. Radiologist's impression: ITS Impressions Hand X-Ray 03/04/25 16:29 IMPRESSION: No acute displaced fracture. Impression dictated by: Fred Styles M.D. 03/04/2025 5:24 PM Dictation Location: [facility] Electronically authenticated by: [id number] Y Date: 03/04/2025 17:[address] 03/04/25 16:29 IMPRESSION: No acute findings. Impression dictated by: Fred Styles M.D. 03/04/2025 5:28 PM Dictation Location: [facility] Electronically authenticated by: [id number] Y Date: 03/04/2025 17:[address] 03/04/25 16:32 IMPRESSION: No acute process Impression dictated by: Fred Styles M.D. 03/04/2025 5:31 PM Dictation Location: [facility] Electronically authenticated by: [id number] Y Date: 03/04/2025 17:31 Discharge Plan Discharge Chief Complaint: Fall Clinical Impression: Face lacerations, Hand pain, Fall Patient Disposition: Home, Self-Care Time of Disposition Decision: 17:42 Condition: Good Mode of Transportation: Private Vehicle Prescriptions / Home Meds: No Action hydrocodone-acetaminophen 5-325 mg tablet 1 tab PO Q12H PRN (Reason: pain) amlodipine 10 mg tablet 10 mg PO DAILY omeprazole 20 mg capsule,delayed release(DR/EC) 20 mg PO DAILY cyclosporine [Restasis] 0.05 % dropperette 1 drp ophthalmic (eye) Q12H aspirin 81 mg Tablet,Delayed Release (Dr/Ec) 81 mg PO QD Qty: 30 2RF lisinopril 20 mg tablet 10 mg PO DAILY Qty: 0 0RF Print Language: Salvadorean Instructions: Fall Prevention (ED) Additional Instructions: Keep your cut clean and dry * Avoid soaking the wound (no swimming, hot tubs, or long baths) for at least 24?48 hours. * Gentle washing with soap and water is usually okay after 24 hours, but don?t scrub the glue. Avoid picking or peeling the glue * The glue naturally flakes off as the wound heals (usually 5?10 days). * Picking can cause infection or wound reopening. Protect the area * Cover with a sterile bandage if needed, especially if the area might get rubbed or dirty. * Avoid tight clothing that rubs the site. Watch for signs of infection Call a doctor or return to the ER if you notice: * Increased redness, swelling, or warmth * Pus or foul-smelling drainage * Fever or feeling unwell * Severe pain that isn?t improving Activity * Limit activity with right hand such as pushing/pulling/lifting until pain and swelling resolved. Pain or discomfort * Mild pain is normal; acetaminophen or ibuprofen is usually okay unless you were told otherwise. * Don?t apply ointments, creams, or alcohol directly on the glue unless instructed. Follow-up * Usually, no follow-up is needed for small cuts closed with glue. * Make a follow-up with your PCP if hand pain and swelling persist for consideration of repeat x-ray in 7-14 days. Referrals: ESSENCE YANES [Primary Care Provider, Unknown] - 1 week Discharge Date/Time: 03/04/25 18:06 Procedures ED Laceration Laceration Laceration 1: Site: face Side (if applicable): right Size (cm): 1 Description: linear Depth: simple, single layer Pre-repair: wound explored, irrigated extensively and deep structures intact Additional comments: Dermabond placed over wound after it was copiously irrigated.
[2025-03-04 18:04] VITALS: BP 132/61; PULSE 71; O2SAT 96
== END 2025-03-04 18:06 | disposition home or self-care (01) ==
PROVIDERS: Emergency Provider Student in an Organized Health Care Education/Training Program; PCP Nurse Practitioner
DX: S09.8XXA Other specified injuries of head, initial encounter (principal); W01.0XXA Fall on same level from slipping, tripping and stumbling without subsequent striking against object, initial encounter; Y92.89 Other specified places as the place of occurrence of the external cause; Z79.82 Long term (current) use of aspirin; S01.111A Laceration without foreign body of right eyelid and periocular area, initial encounter; M79.641 Pain in right hand
CPT/HCPCS: 70450; 72125; 73130; 76376; 99284